=== PATIENT | female | born 1970 | race Caucasian/White ===

== ENCOUNTER → 2019-04-12 16:06 | Outpatient (CLI) | payer MEDICARE, SELFPAY ==
[2019-04-12 17:42] LABS: Basophils # 0.1 K/mm3 (0-0.2); Basophils % 1.1 % (0.1-2.0); Eosinophils # 0.2 K/mm3 (0.0-0.4); Eosinophils % 2.2 % (0.1-12.0); Hematocrit 45.1 % (37.0-47.0); Hemoglobin 14.4 g/dL (12.2-16.2); Lymphocytes # 3.7 K/mm3 (0.7-4.5); Lymphocytes % 38.2 % (10-50); Mean Corpuscular HGB Conc 31.9 g/dL (31.8-35.4); Mean Corpuscular Hemoglobin 29.1 pg (27.0-31.2); Mean Platelet Volume 8.2 fl (7.4-10.4); Monocytes # 0.4 K/mm3 (0.1-1.0); Monocytes % 4.3 % (1.7-9.3); Neutrophils # 5.3 K/mm3 (1.8-7.8); Neutrophils % 54.1 % (37.0-80.0); Platelet Count 337 K/mm3 (142-424); Red Blood Count 4.96 M/mm3 (4.20-5.40); Red Cell Distribution Width 13.9 % (11.5-17.5); White Blood Count 9.8 K/mm3 (4.8-10.8)
[2019-04-12 18:35] LABS: Alanine Aminotransferase 35 U/L (12-78); Albumin Level 3.5 gm/dL (3.4-5.0); Alkaline Phosphatase 117 U/L (46-116); Anion Gap 13.3 mEq/L (5-15); Aspartate Amino Transferase 20 U/L (15-37); Bilirubin,Total 0.4 mg/dL (0.2-1.0); Blood Urea Nitrogen 11 mg/dL (7-18); Calcium 9.4 mg/dL (8.5-10.1); Carbon Dioxide 28 mmol/L (21.0-32.0); Chloride 100 mmol/L (98-107); Chol/HDL Ratio 9.7 (1-3.5); Cholesterol 233 mg/dL (140-200); Creatinine,Serum 0.58 mg/dL (0.55-1.02); Estimated Glomerular Filt Rate 110 ml/min (>60); GFR (African American) 134 ML/MIN (>60); Globulin 3.4 gm/dl (1.3-3.2); Glucose 193 mg/dL (74-106); HDL Cholesterol 24 mg/dL (29-89); Potassium 4.3 mmoL/L (3.5-5.1); Sodium 137 mmol/L (136-145); Thyroid Stimulating Hormone 1.36 uIU/ml (0.358-3.740); Total Protein,Serum 6.9 gm/dL (6.4-8.2)
[2019-04-12 18:52] LABS: C-Reactive Protein < 0.2 mg/dL (0.0-0.9); Triglycerides 877 mg/dL (30-200)
[2019-04-12 18:56] LABS: Hemoglobin A1C 9.5 % (0.0-7.0)
[2019-04-12 18:58] LABS: Erythrocyte Sedimentation Rate 16 mm/hr (0-20)
[2019-04-14 18:15] LABS: Complement C3 137 mg/dL (82-167); Vitamin B12 308 pg/mL (232-1245); Vitamin D 25 Hydroxy 32.6 ng/mL (30.0-100.0)
[2019-04-27 17:59] LABS: Antinuclear Antibodies (ANA) Negative
== END ==
PROVIDERS: PCP Nurse Practitioner Family; Visit Provider Nurse Practitioner Family
DX: E11.9 Type 2 diabetes mellitus without complications (principal); M32.9 Systemic lupus erythematosus, unspecified; I10 Essential (primary) hypertension; G89.29 Other chronic pain
CPT/HCPCS: 36415; 80053; 80061; 82607; 82652; 83036; 84443; 85025; 85651; 86038; 86140; 86161

== ENCOUNTER → 2019-10-31 13:50 | Outpatient (POV) | payer MEDICARE, SELFPAY | DX: Z00.00 Encounter for general adult medical examination without abnormal findings (principal) ==

== ENCOUNTER → 2019-11-07 12:51 | Outpatient (CLI) | payer MEDICARE, SELFPAY ==
--- NOTE | 2019-11-07 13:01 | CT_ITS ---
PROCEDURE: CT HEAD/BRAIN WO CON CLINICAL INDICATION: Shunt review, chronic daily headache COMPARISON: No exams were available for comparison TECHNIQUE: Axial images obtained. All CT scans at the facility use one or more dose reduction, viz: automated exposure control, ma/kV adjustment per patient size (including targeted exams where dose is matched to indication, i.e. head), or iterative reconstruction technique. FINDINGS: No midline shift, mass effect, intracranial hemorrhage, hydrocephalus, or extra-axial fluid collection is evident. There is a ACCOUNT RECEIVABLE ASSOCIATE shunt present from the left frontal approach. The shunt traverses the body of the left lateral ventricle crossing midline lying along the medial aspect of the right thalamus. No hydrocephalus. The left lateral ventricle is smaller than the right side the calvarium has an unremarkable appearance. No mastoid effusion. There is moderate mucosal thickening of the right maxillary sinus and right ethmoid sinuses. IMPRESSION: 1. No acute intracranial findings. 2. Left-sided ACCOUNT RECEIVABLE ASSOCIATE shunt present as described above. No hydrocephalus apparent. 3. Sinus disease Dictated by: Deny Hart MD 11/07/2019 15:58 Electronically signed by Deny Hart MD in [facility] 11/07/2019 15:58
--- NOTE | 2019-11-07 13:30 | CA_ITS ---
APPROVED REPORT EXAM: Comprehensive 2D, Doppler, and color-flow Echocardiogram Psychiatry Physician: Michelle Carnes RVT Ht: 5 ft 1 in Wt: 225lbs BSA: 1.99 BP: 122/71 mmHg Indications: palps,copd,eris,tia,lupus,ele's.gerd,dm,htn,hld,obesity TDS 2D Dimensions LVOT 2.00 cm (M/F) 1.5-2.5 M-Mode Dimensions RVDd 2.77 cm (0.9-2.6) LVDd 5.95 cm (3.5-5.7) LVDs 3.79 cm (3.5-5.7) IVSd 0.53 cm (0.6-1.1) PWd 0.61 cm (0.6-1.1) EF (Teich) 65.10% FS 36.30% EDV (Teich) 176.60 mL ESV (Teich) 61.60 mL LV Diastology E/A Ratio 0.80 Mitral Valve MV A Velocity 66.00 (40-130 cm/s) Left Ventricle Left atrium is mildly enlarged, left ventricle is normal size, mild concentric left ventricular hypertrophy, visually estimated ejection fraction 55% with no regional wall motion abnormality, grade 1 diastolic dysfunction seen without tissue Doppler evidence of raise left atrial pressure. Right Ventricle Right atrium is normal size, right ventricle is mildly enlarged with normal contractility. Aortic Valve Aortic valve is minimally thickened and fibrosed. There is no aortic stenosis or aortic insufficiency. Mitral Valve Mitral valve is grossly normal, there is mild mitral regurgitation. Tricuspid Valve Tricuspid valve is grossly normal, there is mild tricuspid regurgitation, tricuspid regurgitation jet velocity is inadequate for calculation of the right ventricular systolic pressure. Pulmonic Valve Pulmonic valve is poorly visualized. Great Vessels Aortic root is normal size. Pericardium No significant pericardial effusion noted. Conclusion 1. Left atrium, normal left ventricular size, mild concentric left ventricular hypertrophy, visually estimated ejection fraction 55% with no regional wall motion abnormality, grade 1 diastolic dysfunction seen without tissue Doppler evidence of raise left atrial pressure. 2. Mildly enlarged right ventricle with normal contractility. 3. Mild mitral and tricuspid regurgitation. 4. No significant pericardial effusion noted. Electronically signed by : Daniel Ordoñez, 11/08/2019 12:01:03
== END ==
PROVIDERS: PCP Nurse Practitioner Family; Visit Provider Specialist
DX: G04.90 Encephalitis and encephalomyelitis, unspecified (principal); M32.9 Systemic lupus erythematosus, unspecified; R51 Headache; Z86.69 Personal history of other diseases of the nervous system and sense organs; Z98.2 Presence of cerebrospinal fluid drainage device; R00.2 Palpitations; R07.89 Other chest pain; R06.09 Other forms of dyspnea
CPT/HCPCS: 36415; 70450; 80053; 85025; 85651; 85660; 86225; 86235; 93306

== ENCOUNTER → 2019-11-07 14:00 | Outpatient (CLI) | payer MEDICARE, SELFPAY ==
[2019-11-07 15:26] LABS: Basophils # 0.1 K/mm3 (0-0.2); Basophils % 0.8 % (0.1-2.0); Eosinophils # 0.2 K/mm3 (0.0-0.4); Eosinophils % 1.6 % (0.1-12.0); Hematocrit 44.9 % (37.0-47.0); Hemoglobin 14.9 g/dL (12.2-16.2); Lymphocytes # 3.1 K/mm3 (0.7-4.5); Lymphocytes % 29.2 % (10-50); Mean Corpuscular HGB Conc 33.1 g/dL (31.8-35.4); Mean Corpuscular Hemoglobin 29.8 pg (27.0-31.2); Mean Platelet Volume 7.4 fl (7.4-10.4); Monocytes # 0.6 K/mm3 (0.1-1.0); Monocytes % 5.4 % (1.7-9.3); Neutrophils # 6.6 K/mm3 (1.8-7.8); Neutrophils % 62.9 % (37.0-80.0); Platelet Count 298 K/mm3 (142-424); Red Blood Count 4.99 M/mm3 (4.20-5.40); Red Cell Distribution Width 13.9 % (11.5-17.5); White Blood Count 10.6 K/mm3 (4.8-10.8)
[2019-11-07 16:09] LABS: Chloride 100 mmol/L (98-107)
[2019-11-07 16:10] LABS: Potassium 4.3 mmoL/L (3.5-5.1); Sodium 133 mmol/L (136-145)
[2019-11-07 16:12] LABS: Alanine Aminotransferase 77 U/L (12-78); Alkaline Phosphatase 138 U/L (38-126); Aspartate Amino Transferase 45 U/L (14-36); Bilirubin,Total 0.6 mg/dl (0.2-1.3); Blood Urea Nitrogen 10 mg/dl (7-17); Estimated Glomerular Filt Rate 131 ml/min (>60); GFR (African American) 158 ML/MIN (>60)
[2019-11-07 16:13] LABS: Albumin Level 3.6 g/dl (3.5-5.0); Albumin/Globulin Ratio 1.2 (1.1-1.8); Anion Gap 9.3 mEq/L (5-15); Calcium 8.9 mg/dl (8.4-10.2); Carbon Dioxide 28 mmol/L (22.0-30.0); Globulin 2.9 g/dL (1.3-3.2); Glucose 296 mg/dl (74-100); Total Protein,Serum 6.5 g/dl (6.3-8.2)
[2019-11-07 20:21] LABS: Erythrocyte Sedimentation Rate 23 mm/hr (0-20)
[2019-11-09 12:18] LABS: Anti-Centromere B Antibodies <0.2 AI (0.0-0.9); Anti-Jo-1 <0.2 AI (0.0-0.9); Anti-Smith Antibody <0.2 AI (0.0-0.9); Antichromatin Antibodies <0.2 AI (0.0-0.9); Antiscleroderma-70 Antibodies <0.2 AI (0.0-0.9); RNP Antibodies 0.2 AI (0.0-0.9); Sjogren's Anti-SS-A <0.2 AI (0.0-0.9); Sjogren's Anti-SS-B <0.2 AI (0.0-0.9)
[2019-11-09 15:41] LABS: Anti-DNA (DS) Ab Qn <1 IU/mL (0-9); Hemoglobin (Hgb) Solubility Negative (Negative)
== END ==
PROVIDERS: Visit Provider Specialist
DX: E11.69 Type 2 diabetes mellitus with other specified complication (principal); G04.90 Encephalitis and encephalomyelitis, unspecified; G47.33 Obstructive sleep apnea (adult) (pediatric); M32.9 Systemic lupus erythematosus, unspecified; R51 Headache; Z86.69 Personal history of other diseases of the nervous system and sense organs; Z98.2 Presence of cerebrospinal fluid drainage device
CPT/HCPCS: 36415; 80053; 85025; 85651; 85660; 86225; 86235

== ENCOUNTER → 2019-12-11 11:26 | Outpatient (CLI) | payer MEDICARE, SELFPAY ==
--- NOTE | 2019-12-11 11:32 | XR_ITS ---
PROCEDURE: XR FOOT LT MIN 3V CLINICAL INDICATION: COMPARISON: No exams were available for comparison FINDINGS: No fracture or dislocation. No lytic or blastic change. There is normal mineralization. The joint spaces are well-preserved. No significant degenerative/arthritic changes. No erosive changes evident. Other findings:None. IMPRESSION: No acute findings. Dictated by: Deny Hart MD 12/11/2019 14:19 Electronically signed by Deny Hart MD in [facility] 12/11/2019 14:19
--- NOTE | 2019-12-11 11:34 | XR_ITS ---
PROCEDURE: XR ANKLE LT MIN 3V CLINICAL INDICATION: L FOOT AND ANKLE PAIN COMPARISON: No exams were available for comparison FINDINGS: There is a nondisplaced transverse fracture involving the tip lateral malleolus with mild overlying soft tissue swelling. The joint spaces are well-preserved. No significant degenerative/arthritic changes. No erosive changes evident. Other findings:Small calcaneal spur and Achilles enthesophyte IMPRESSION: A nondisplaced fracture tip of the lateral malleolus Dictated by: Deny Hart MD 12/11/2019 14:05 Electronically signed by Deny Hart MD in [facility] 12/11/2019 14:05
== END ==
PROVIDERS: PCP Internal Medicine Adolescent Medicine; Visit Provider Nurse Practitioner Family
DX: M79.672 Pain in left foot (principal); M25.572 Pain in left ankle and joints of left foot
CPT/HCPCS: 73610; 73630

== ENCOUNTER 2019-12-13 14:08 | Outpatient (RCR) | payer MEDICARE, SELFPAY | END 2019-12-13 14:20 | disposition home or self-care (01) | LOC: PT 14:08 | PROVIDERS: Visit Provider Internal Medicine Adolescent Medicine | DX: S82.65XA Nondisplaced fracture of lateral malleolus of left fibula, initial encounter for closed fracture (principal) | CPT/HCPCS: 97760 ==

== ENCOUNTER → 2019-12-25 10:33 | Outpatient (CLI) | payer MEDICARE, SELFPAY ==
--- NOTE | 2019-12-25 10:37 | XR_ITS ---
PROCEDURE: XR ANKLE LT MIN 3V CLINICAL INDICATION: LEFT ANKLE FRACTURE FU Follow-up fracture COMPARISON: XR ANKLE LT MIN 3V from 12/11/2019 FINDINGS: There is a nondisplaced transverse fracture at the tip the lateral malleolus. Fracture line appears somewhat less apparent and may be due to early healing. There is a small calcaneal spur and Achilles enthesophyte Other findings:None. IMPRESSION: Healing nondisplaced avulsion fracture at the tip of the lateral malleolus Dictated by: Deny Hart MD 12/25/2019 13:05 Electronically signed by Deny Hart MD in [facility] 12/25/2019 13:05
== END ==
PROVIDERS: PCP Nurse Practitioner Family; Visit Provider Orthopaedic Surgery
DX: S82.892A Other fracture of left lower leg, initial encounter for closed fracture (principal)
CPT/HCPCS: 73610

== ENCOUNTER → 2020-05-12 10:12 | Outpatient (CLI) | payer MEDICARE, SELFPAY ==
[2020-05-12 11:02] LABS: Basophils # 0.1 K/mm3 (0-0.2); Basophils % 0.8 % (0.1-2.0); Eosinophils # 0.2 K/mm3 (0.0-0.4); Eosinophils % 1.8 % (0.1-12.0); Hematocrit 47.4 % (37.0-47.0); Hemoglobin 15.9 g/dL (12.2-16.2); Lymphocytes # 3.2 K/mm3 (0.7-4.5); Mean Corpuscular HGB Conc 33.7 g/dL (31.8-35.4); Mean Corpuscular Hemoglobin 29.3 pg (27.0-31.2); Mean Corpuscular Volume 87.2 fl (81-99); Monocytes # 0.5 K/mm3 (0.1-1.0); Monocytes % 4.8 % (1.7-9.3); Neutrophils # 7.3 K/mm3 (1.8-7.8); Neutrophils % 64.6 % (37.0-80.0); Platelet Count 332 K/mm3 (142-424); Red Blood Count 5.43 M/mm3 (4.20-5.40); Red Cell Distribution Width 13.9 % (11.5-17.5); White Blood Count 11.3 K/mm3 (4.8-10.8)
[2020-05-12 11:46] LABS: Hemoglobin A1C 11.2 % (4.0-6.0)
[2020-05-12 12:14] LABS: Chloride 100 mmol/L (98-107); Sodium 135 mmol/L (136-145)
[2020-05-12 12:17] LABS: Alanine Aminotransferase 28 U/L (12-78); Albumin/Globulin Ratio 1.4 (1.1-1.8); Alkaline Phosphatase 155 U/L (38-126); Aspartate Amino Transferase 22 U/L (14-36); Bilirubin,Total 0.4 mg/dl (0.2-1.3); Blood Urea Nitrogen 16 mg/dl (7-17); Carbon Dioxide 27 mmol/L (22.0-30.0); Cholesterol 182 mg/dl (140-200); Estimated Glomerular Filt Rate 131 ml/min (>60); GFR (African American) 158 ML/MIN (>60); Globulin 2.8 g/dL (1.3-3.2); Total Protein,Serum 6.8 g/dl (6.3-8.2)
[2020-05-12 12:18] LABS: Calcium 9.6 mg/dl (8.4-10.2); Chol/HDL Ratio 6.7 (1-3.5); Glucose 368 mg/dl (74-100); HDL Cholesterol 27 mg/dl (40-60)
[2020-05-12 12:23] LABS: C-Reactive Protein 3.6 mg/L (0-4)
[2020-05-12 12:28] LABS: Direct LDL Cholesterol 48.53 mg/dL (100-129)
[2020-05-12 12:30] LABS: Triglycerides 863 mg/dl (30-150)
[2020-05-12 12:36] LABS: Erythrocyte Sedimentation Rate 7 mm/hr (0-20)
[2020-05-12 12:48] LABS: Thyroid Stimulating Hormone 1.35 uIU/mL (0.465-4.68)
== END ==
PROVIDERS: PCP Nurse Practitioner Family; Visit Provider Nurse Practitioner Family
DX: M32.9 Systemic lupus erythematosus, unspecified (principal); I10 Essential (primary) hypertension; E11.9 Type 2 diabetes mellitus without complications; R63.4 Abnormal weight loss
CPT/HCPCS: 36415; 80053; 80061; 83036; 84443; 85025; 85651; 86140

== ENCOUNTER → 2020-12-04 11:51 | Outpatient (CLI) | payer MEDICARE, SELFPAY ==
[2020-12-04 12:23] LABS: Basophils # 0.1 K/mm3 (0-0.2); Eosinophils # 0.2 K/mm3 (0.0-0.4); Hematocrit 45.2 % (37.0-47.0); Hemoglobin 15.3 g/dL (12.2-16.2); Lymphocytes # 3.3 K/mm3 (0.7-4.5); Lymphocytes % 28.1 % (10-50); Mean Corpuscular HGB Conc 33.7 g/dL (31.8-35.4); Mean Corpuscular Hemoglobin 29.6 pg (27.0-31.2); Mean Corpuscular Volume 87.7 fl (81-99); Mean Platelet Volume 7.3 fl (7.4-10.4); Monocytes # 0.6 K/mm3 (0.1-1.0); Monocytes % 4.9 % (1.7-9.3); Neutrophils # 7.4 K/mm3 (1.8-7.8); Platelet Count 327 K/mm3 (142-424); Red Blood Count 5.16 M/mm3 (4.20-5.40); Red Cell Distribution Width 13.9 % (11.5-17.5); White Blood Count 11.6 K/mm3 (4.8-10.8)
[2020-12-04 13:10] LABS: Hemoglobin A1C 12.5 % (4.0-6.0)
[2020-12-04 13:19] LABS: Erythrocyte Sedimentation Rate 11 mm/hr (0-30)
[2020-12-04 13:41] LABS: Chloride 103 mmol/L (98-107); Potassium 5.3 mmoL/L (3.5-5.1); Sodium 135 mmol/L (136-145)
[2020-12-04 13:43] LABS: Blood Urea Nitrogen 14 mg/dl (7-17); Estimated Glomerular Filt Rate 168 ml/min (>60); GFR (African American) 204 ML/MIN (>60)
[2020-12-04 13:44] LABS: Alanine Aminotransferase 58 U/L (12-78); Albumin/Globulin Ratio 1.3 (1.1-1.8); Alkaline Phosphatase 161 U/L (38-126); Anion Gap 16.3 mEq/L (5-15); Aspartate Amino Transferase 37 U/L (14-36); Bilirubin,Total 0.6 mg/dl (0.2-1.3); Calcium 9.1 mg/dl (8.4-10.2); Carbon Dioxide 21 mmol/L (22.0-30.0); Chol/HDL Ratio 11.8 (1-3.5); Cholesterol 235 mg/dl (140-200); Globulin 3.1 g/dL (1.3-3.2); Glucose 357 mg/dl (74-100); HDL Cholesterol 20 mg/dl (40-60); Total Protein,Serum 7.1 g/dl (6.3-8.2)
[2020-12-04 13:52] LABS: Triglycerides > 1575 mg/dl (30-150)
[2020-12-04 14:05] LABS: Direct LDL Cholesterol < 30.00 mg/dL (100-129)
[2020-12-04 15:55] LABS: Creatine Kinase 25 U/L (30-135)
[2020-12-04 17:02] LABS: Vitamin B12 374 pg/mL (239-931)
[2020-12-05 14:24] LABS: Aldolase 7.7 U/L (3.3-10.3)
== END ==
PROVIDERS: Visit Provider Specialist
DX: R53.1 Weakness (principal); M32.19 Other organ or system involvement in systemic lupus erythematosus; E11.9 Type 2 diabetes mellitus without complications; Z79.84 Long term (current) use of oral hypoglycemic drugs
CPT/HCPCS: 36415; 80053; 80061; 82085; 82550; 82607; 82746; 83036; 85025; 85651

== ENCOUNTER → 2021-01-12 14:40 | Outpatient (CLI) | payer MEDICARE, SELFPAY ==
--- NOTE | 2021-01-12 14:47 | XR_ITS ---
PROCEDURE: XR ANKLE LT MIN 3V CLINICAL INDICATION: LT ANKLE PAIN DUE TO TRAUMA COMPARISON: CR XR ANKLE LT MIN 3V from 12/11/2019 CR XR ANKLE LT MIN 3V from 12/25/2019 CR XR TIBIA FIBULA RT 2V from 01/12/2021 FINDINGS: There is a curvilinear lucency along the lateral aspect of the distal tibia which extends to the distal surface suspicious for nondisplaced fracture. The fibula and talar dome has an unremarkable appearance. There is a mildly prominent calcaneal spur and a small Achilles enthesophyte The joint spaces are well-preserved. No significant degenerative/arthritic changes. No erosive changes evident. Other findings:None. IMPRESSION: Nondisplaced fracture involving the distal tibia laterally. Dictated by: Deny Hart MD 01/12/2021 15:42 Deny Hart MD in [facility] 01/12/2021 15:42
--- NOTE | 2021-01-12 14:47 | XR_ITS ---
PROCEDURE: XR TIBIA FIBULA RT 2V CLINICAL INDICATION: RT LEG PAIN,PAIN DUE TO TRAUMA COMPARISON: No exams were available for comparison FINDINGS: No fracture or dislocation. No lytic or blastic change. There is normal mineralization. The joint spaces are well-preserved. No significant degenerative/arthritic changes. No erosive changes evident. Other findings:Phleboliths are present in the pretibial region. There is a prominent calcaneal spur IMPRESSION: No acute findings. Dictated by: Deny Hart MD 01/12/2021 15:43 Deny Hart MD in [facility] 01/12/2021 15:43
== END ==
PROVIDERS: PCP Nurse Practitioner Family; Visit Provider Nurse Practitioner Family
DX: M79.661 Pain in right lower leg (principal); M25.572 Pain in left ankle and joints of left foot; G89.11 Acute pain due to trauma
CPT/HCPCS: 73590; 73610

== ENCOUNTER 2021-01-13 15:25 | Outpatient (RCR) | payer MEDICARE, SELFPAY | END 2021-01-13 16:47 | disposition home or self-care (01) | LOC: PT 15:25 | PROVIDERS: Visit Provider Orthopaedic Surgery | DX: S82.302A Unspecified fracture of lower end of left tibia, initial encounter for closed fracture (principal) ==

== ENCOUNTER → 2021-01-20 14:10 | Outpatient (CLI) | payer MEDICARE, SELFPAY ==
--- NOTE | 2021-01-20 14:14 | XR_ITS ---
PROCEDURE: XR ANKLE LT MIN 3V CLINICAL INDICATION: Distal fib fracture COMPARISON: CR XR ANKLE LT MIN 3V from 12/11/2019 CR XR ANKLE LT MIN 3V from 12/25/2019 CR XR ANKLE LT MIN 3V from 01/12/2021 FINDINGS: Nondisplaced curvilinear fracture involves the distal tibia medially unchanged. Ankle mortise is preserved. Tiny avulsion fracture involves the distal fibula which may be chronic IMPRESSION: No change distal tibial fracture. Dictated by: Deny Hart MD 01/20/2021 15:55 Deny Hart MD in [facility] 01/20/2021 15:55
--- NOTE | 2021-01-20 15:32 | XR_ITS ---
PROCEDURE: XR ANKLE RT MIN 3V CLINICAL INDICATION: right ankle pain COMPARISON: CR XR ANKLE LT MIN 3V from 12/11/2019 CR XR ANKLE LT MIN 3V from 12/25/2019 CR XR ANKLE LT MIN 3V from 01/12/2021 CR XR ANKLE LT MIN 3V from 01/20/2021 FINDINGS: No fracture or dislocation. No lytic or blastic change. There is normal mineralization. The joint spaces are well-preserved. No significant degenerative/arthritic changes. No erosive changes evident. Small phleboliths are present along the anterior distal to mid tibia IMPRESSION: No acute findings. Dictated by: Deny Hart MD 01/20/2021 15:56 Deny Hart MD in [facility] 01/20/2021 15:56
== END ==
PROVIDERS: PCP Nurse Practitioner Family; Visit Provider Orthopaedic Surgery
DX: M25.571 Pain in right ankle and joints of right foot; S82.892A Other fracture of left lower leg, initial encounter for closed fracture
CPT/HCPCS: 73610

== ENCOUNTER → 2021-01-26 11:22 | Outpatient (POV) | payer MEDICARE, SELFPAY ==
[2021-01-26 11:44] VITALS: BP 122/78; PULSE 70; RESP 18; O2SAT 95; BMI 40.6
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
== END ==
PROVIDERS: PCP Nurse Practitioner Family; Visit Provider Clinical Nurse Specialist Family Health
DX: M54.2 Cervicalgia (principal); M54.16 Radiculopathy, lumbar region; M54.5 Low back pain; M79.7 Fibromyalgia
CPT/HCPCS: 99202; G0463

== ENCOUNTER → 2021-02-11 07:06 | Outpatient (CLI) | payer MEDICARE, SELFPAY ==
--- NOTE | 2021-02-11 07:10 | CT_ITS ---
PROCEDURE: CT LUMBAR SPINE WO CON CLINICAL HISTORY: BACK/NECK PAIN Low back pain, chronic COMPARISON: No exams were available for comparison TECHNIQUE: Axial images obtained with sagittal and coronal reformats. All CT scans at the facility use one or more dose reduction, viz: automated exposure control, ma/kV adjustment per patient size (including targeted exams where dose is matched to indication, i.e. head), or iterative reconstruction technique. FINDINGS: There is normal alignment. No acute fracture or dislocation is evident. There is an intradural catheter present. The catheter enters the thecal sac at the L3-L4 level ascends superiorly with the tip at the T12 level. T10-T11: Degenerative disc disease with anterior and lateral osteophytes. T11-T12: Degenerative disc disease. There is a small left paracentral and foraminal disc protrusion causing left lateral recess and foraminal narrowing. T12-L1: Mild degenerative disc disease. L1-L2: Unremarkable. L2-L3: Unremarkable. L3-L4: Unremarkable. L4-5: Facet hypertrophic change. There is a small to medium-sized central disc protrusion with bilateral lateral recess narrowing. L5-S1: Bilateral pars defects with bony hypertrophy at the defects with mild bilateral lateral recess narrowing. Bulging disc with facet and ligamentum hypertrophy with mild bilateral foraminal narrowing. No spondylolisthesis. Minimal calcification in what is felt to represent the left ovary. This is incompletely imaged. IMPRESSION: 1. T11-T12: Degenerative disc disease. There is a small left paracentral and foraminal disc protrusion causing left lateral recess and foraminal narrowing 2. L4-5: Facet hypertrophic change. There is a small to medium-sized central disc protrusion with bilateral lateral recess narrowing. 3. L5-S1: Bilateral pars defects with bony hypertrophy at the defects with mild bilateral lateral recess narrowing. Bulging disc with facet and ligamentum hypertrophy with mild bilateral foraminal narrowing. No spondylolisthesis Dictated by: Deny Hart MD 02/11/2021 07:49 Deny Hart MD in [place] 02/11/2021 07:49
--- NOTE | 2021-02-11 07:10 | CT_ITS ---
PROCEDURE: CT CERVICAL SPINE WO CON CLINICAL INDICATION: BACK/NECK PAIN COMPARISON: No exams were available for comparison TECHNIQUE: Axial images obtained with sagittal and coronal reformats. All CT scans at the facility use one or more dose reduction, viz: automated exposure control, ma/kV adjustment per patient size (including targeted exams where dose is matched to indication, i.e. head), or iterative reconstruction technique. Axial spiral CT scanning performed of the cervical spine beginning at the base of the skull and continuing to the upper T-spine. 3-D multiplanar reconstruction with 3-D manipulation of volumetric data set in image rendering was completed by the radiologist and/or technologist with the supervision of the radiologist on independent workstation. FINDINGS: There is minimal cervical curvature convex right. There is normal alignment. No acute fracture or dislocation. No lytic or blastic change. C1-C2: Unremarkable. C2-C3: Mild right foraminal narrowing from uncovertebral hypertrophy. C3-C4: Unremarkable. C4-C5: Unremarkable. C5-C6: Degenerative disc disease with posterior endplate hypertrophic changes and uncovertebral hypertrophy greater on the left. There is canal stenosis and bilateral lateral recess narrowing as well as severe left-sided foraminal narrowing. The canal measures 8 and 9 mm in AP dimension. C6-C7: Unremarkable. C7-T1 and T1-T2 have an unremarkable appearance. T2-T3: Small left paracentral disc osteophyte complex A SENIOR COST ESTIMATOR shunt traverses the right neck. There are scattered small lymph nodes in the neck and mild prominence of the adenoid tissue. IMPRESSION: 1. C2-C3: Mild right foraminal narrowing from uncovertebral hypertrophy. 2. C5-C6: Degenerative disc disease with posterior endplate hypertrophic changes and uncovertebral hypertrophy greater on the left. There is canal stenosis and bilateral lateral recess narrowing as well as severe left-sided foraminal narrowing. The canal measures 8 and 9 mm in AP dimension. 3. C7-T1 and T1-T2 have an unremarkable appearance. 4. T2-T3: Small left paracentral disc osteophyte complex Dictated by: Deny Hart MD 02/11/2021 08:01 Deny Hart MD in [place] 02/11/2021 08:01
== END ==
PROVIDERS: PCP Nurse Practitioner Family; Visit Provider Clinical Nurse Specialist Family Health
DX: M54.2 Cervicalgia (principal); M54.5 Low back pain
CPT/HCPCS: 72125; 72131

== ENCOUNTER → 2021-02-24 11:21 | Outpatient (CLI) | payer MEDICARE, SELFPAY ==
--- NOTE | 2021-02-24 11:27 | XR_ITS ---
PROCEDURE: XR ANKLE LT MIN 3V CLINICAL INDICATION: left alvusion fx COMPARISON: CR XR ANKLE LT MIN 3V from 12/25/2019 CR XR ANKLE LT MIN 3V from 01/12/2021 CR XR ANKLE RT MIN 3V from 01/20/2021 CR XR ANKLE LT MIN 3V from 01/20/2021 FINDINGS: Nondisplaced longitudinal fracture once again noted involving the lateral aspect of the distal tibia. Tiny avulsion fracture of the distal fibula once again noted unchanged. Calcaneal spur once again noted. Other findings:None. IMPRESSION: No change distal tibial fracture and tiny avulsion fracture of the distal fibula Dictated by: Deny Hart MD 02/24/2021 14:34 Deny Hart MD in [place] 02/24/2021 14:34
== END ==
PROVIDERS: PCP Nurse Practitioner Family; Visit Provider Orthopaedic Surgery
DX: S82.62XA Displaced fracture of lateral malleolus of left fibula, initial encounter for closed fracture (principal)
CPT/HCPCS: 73610

== ENCOUNTER → 2021-02-26 10:04 | Outpatient (POV) | payer MEDICARE, SELFPAY ==
[2021-02-26 10:13] VITALS: BP 132/74; PULSE 77; RESP 18; O2SAT 95; BMI 89.5
--- NOTE | 2021-02-26 12:28 | HMH.PAINSOAP ---
[facility] Pain Management SOAP Note Subjective:: Patient is a pleasant 50-year-old white female who presents today for follow-up. She recently underwent CT scan of the cervical and lumbar spine. She was referred to us by Kathy Godoy for worsening neck and low back pain. She reports her neck pain to be worse at this time. She also has a crush injury to her right ankle from approximately 1 month ago. Patient says that she has had chronic neck and low back pain for many years. She is managed at this time for fibromyalgia with [place], Cymbalta, and Lyrica. Patient says that the pain in her neck is radiating into her bilateral upper extremities causing numbness and tingling in her hands. She also has low back pain with radiation into her bilateral lower extremities worse to the right ankle due to the recent crush injury in January 2021. She does use ice and heat therapies, but does not seem to get much relief. She also reports to have been taking meloxicam most recently. Meloxicam has not given her relief. She would like to review her CT scans today and discuss a further plan of care. Review of Systems General: No recent weight changes, no fever, no sleep disturbances Respiratory: No cough, no shortness of air, no recurring pulmonary infections Cardiovascular/peripheral vascular: No chest pain, no palpitations, no edema, no shortness of breath Gastrointestinal: No new onset incontinence, normal bowel movements reported Genitourinary: No new onset incontinence Musculoskeletal: Neck pain with radiation into bilateral upper extremities, low back pain with radiation into bilateral lower extremities Psychiatric: [Normal mood/affect] Neurological: [Denies weakness in extremities], [denies balance issues] Objective:: Physical exam General: Alert and oriented x3, no acute distress, pleasant and cooperative, Lungs: Respirations even and unlabored, symmetrical chest expansion Eyes: PERRL Musculoskeletal: Flexion and extension of cervical and lumbar [spine] somewhat guarded secondary to pain, strength in upper and lower extremities [5/5], [antalgic gait noted] Neurological: Speech clear, [nylon hot wire cutter equal], no gross sensory deficit Assessment:: Degenerative disc disease cervical and lumbar spine, with spinal stenosis cervical and lumbar spine Plan:: Patient is requesting a neurosurgery evaluation. She has been advised that she will likely need to undergo injective therapy before proceeding with neurosurgical evaluation. She would like to proceed with a cervical epidural steroid injection. According to the CT scan, Degenerative disc disease with posterior endplate hypertrophic changes and uncovertebral hypertrophy greater on the left. There is canal stenosis and bilateral lateral recess narrowing as well as severe left-sided foraminal narrowing. The canal measures 8 and 9 mm in AP dimension. The patient is having pain in her neck with radiation into bilateral upper extremities. She is having numbness and tingling in her arms as well. We will schedule the patient for cervical epidural steroid injection at C5-C6 area. The patient is not currently on anticoagulation therapy. She has been seen by Dr. Saez for crush injury to her right foot. She does report to have a history of CELLULAR BIOLOGIST shunt. We will follow-up with patient after her injection for reevaluation of symptoms. She will continue with ice and heat therapies and meloxicam. Possible side effects of corticosteroids have been discussed with the patient. Risks and benefits of the procedure have been explained to the patient. Patient would like to proceed with the procedure. Patient has been instructed to contact the clinic with any concerns before the next appointment. Dr. Frank has reviewed this note and agrees with this plan of care. This note was dictated using voice recognition software and make contain errors or omissions. Patient has been instructed to contact the clinic with any co
== END ==
PROVIDERS: PCP Internal Medicine Adolescent Medicine; Visit Provider Clinical Nurse Specialist Family Health
DX: M50.10 Cervical disc disorder with radiculopathy, unspecified cervical region (principal); M51.36 Other intervertebral disc degeneration, lumbar region; M48.061 Spinal stenosis, lumbar region without neurogenic claudication; M48.02 Spinal stenosis, cervical region
CPT/HCPCS: 99212; G0463

== ENCOUNTER → 2021-03-03 14:03 | Outpatient (CLI) | payer MEDICARE, SELFPAY ==
--- NOTE | 2021-03-03 14:08 | US_ITS ---
PROCEDURE: US EXTREMITY RT LIMITED CLINICAL INDICATION: HEMATOMA/RULE OUT ABSCESS COMPARISON: No exams were available for comparison FINDINGS: No hematoma or abscess apparent in the clinical concern. There is mild interstitial edema in the subcutaneous tissue. No local fluid collection evident. IMPRESSION: No hematoma or abscess apparent. Interstitial edema within the adipose tissue. Dictated by: Deny Hart MD 03/03/2021 16:07 Deny Hart MD in [place] 03/03/2021 16:07
== END ==
PROVIDERS: PCP Internal Medicine Adolescent Medicine; Visit Provider Orthopaedic Surgery
DX: M79.661 Pain in right lower leg (principal)
CPT/HCPCS: 76882

== ENCOUNTER 2021-03-20 08:57 | Day surgery (SDC) | payer MEDICARE, SELFPAY ==
[2021-03-20 09:04] VITALS: BP 137/73; PULSE 72; RESP 18; TEMP 36.8; BMI 40.6
[2021-03-20 09:14] VITALS: BP 123/74; PULSE 73; RESP 18; O2SAT 96
[2021-03-20 09:22] VITALS: BP 122/76; PULSE 73; RESP 18; O2SAT 96
[2021-03-20 09:33] VITALS: BP 136/85; PULSE 74; RESP 20; O2SAT 97
--- NOTE | 2021-03-20 09:33 | P.PCN_ITS ---
- Procedure Date: 03/20/21 Time: 09:33 Anesthesiologist:: Monty Frank MD Complications:: None Pre-procedure Diagnosis:: Degenerative disc disease of the cervical spine with cervical radiculopathy symptoms Post-procedure Diagnosis:: Same Indications for Procedure:: Patient is a pleasant 50-year-old white female who we are treating for neck pain with cervical radiculopathy symptoms. She does have a UNHAIRING MACHINE OPERATOR shunt in place. She is having some increasing neck pain with radiation into both shoulders and both arms. She does have degenerative changes throughout the cervical spine. We will plan on cervical epidural steroid injection today to help with her pain symptoms. Procedure Details:: Cervical epidural steroid injection under fluoroscopy Informed consent was obtained and the risks and benefits of the procedure was explained to the patient. The patient was taken to the procedure room placed prone on the procedure table. The neck was prepped using ChloraPrep. The skin and subcutaneous tissues were anesthetized using lidocaine. I placed a 18-gauge epidural needle into the C5-C6 interspace and advanced using [id number] to air and fluoroscopic guidance. After confirmation of needle placement in the epidural space with dye, I injected 3 mL's lidocaine 1.5% and Depo-Medrol 80 mg. The patient tolerated the procedure well with no complications. Plan and Disposition:: We will follow-up with her in 2 weeks. Will reevaluate her symptoms at that time.
== END 2021-03-20 09:34 | disposition home or self-care (01) ==
LOC: SC.PAINP 08:58
PROVIDERS: PCP Internal Medicine Adolescent Medicine; Visit Provider Anesthesiology
DX: M50.10 Cervical disc disorder with radiculopathy, unspecified cervical region (principal); G43.909 Migraine, unspecified, not intractable, without status migrainosus; E78.5 Hyperlipidemia, unspecified; I10 Essential (primary) hypertension; J44.9 Chronic obstructive pulmonary disease, unspecified; J45.909 Unspecified asthma, uncomplicated; K21.9 Gastro-esophageal reflux disease without esophagitis; M19.90 Unspecified osteoarthritis, unspecified site; E11.9 Type 2 diabetes mellitus without complications; F32.9 Major depressive disorder, single episode, unspecified; Z72.0 Tobacco use
CPT/HCPCS: 62321; J1040; Q9966

== ENCOUNTER → 2021-04-07 08:39 | Outpatient (POV) | payer MEDICARE, SELFPAY ==
[2021-04-07 08:45] VITALS: BP 146/81; PULSE 80; RESP 18; O2SAT 99; BMI 42.5
--- NOTE | 2021-04-07 08:58 | HMH.PAINSOAP ---
[facility] Pain Management SOAP Note Subjective:: Patient is a 50-year-old white female who presents today for follow-up after a cervical epidural steroid injection at C5-C6 area. Patient reports she got no relief with the injections. Rates her pain a 10 out of 10. She is having pain in her neck and bilateral shoulders with achiness and heaviness. She says she also has weakness in her upper extremities. She and neck area. She has tried physical therapy in the past for greater than 6 weeks. She does have a TOOL CRIB LEAD shunt in place. She continues with home stretching and does take [place] prescribed by Dr. Saez. Review of Systems General: No recent weight changes, no fever, no sleep disturbances Respiratory: No cough, no shortness of air, no recurring pulmonary infections Cardiovascular/peripheral vascular: No chest pain, no palpitations, no edema, no shortness of breath Gastrointestinal: No new onset incontinence, normal bowel movements reported Genitourinary: No new onset incontinence Musculoskeletal: Neck pain with radiation into bilateral shoulders Psychiatric: [Normal mood/affect] Neurological: [Denies weakness in extremities], [denies balance issues] Objective:: Physical exam General: Alert and oriented x3, no acute distress, pleasant and cooperative Lungs: Respirations even and unlabored, symmetrical chest expansion Eyes: PERRL Musculoskeletal: Flexion and extension of cervical [spine] somewhat guarded secondary to pain, [normal gait noted Neurological: Speech clear, no gross sensory deficit Assessment:: Degenerative disc disease cervical spine cervical radiculopathy symptoms, myofascial pain cervical spine Plan:: Patient presents for follow-up after a cervical epidural steroid injection. She reports palpation to cervical paraspinal trapezius muscles. We will schedule the patient injective therapy to these areas to see if she gets relief. Patient is diabetic. We will follow-up with her after her injections for reevaluation of symptoms. Possible side effects of corticosteroids have been discussed with the patient. Risks and benefits of the procedure have been explained to the patient. Patient would like to proceed with the procedure. Patient has been instructed to contact the clinic with any concerns before the next appointment. Dr. Frank has reviewed this note and agrees with this plan of care. This note was dictated using voice recognition software and make contain errors or omissions. [facility] History I have reviewed the patient's past medical history: Yes Medical History: Reports:: Arrhythmia, Asthma, Chronic Obstructive Pulmonary Disease (COPD), Cerebrovascular Accident, Depression, Diabetes Mellitus Type 2, Gastroesophageal Reflux Disease(GERD), Hyperlipidemia, Hypertension, Migraine Denies:: Cancer, Diabetes Mellitus Type 1, MRSA, Seizures *Have you ever received a pneumonia vaccine?: Yes *Have you received a flu vaccine this season?: No Other Medical History: Reports: Arthritis, Other. Denies: Blood Transfusion Reaction Laterality Cases: Bilateral: Tonsillectomy Other Surgeries: Yes: Cholecystectomy, Colonoscopy, , EGD, Hysterectomy-Partial, Tubal Ligation Amputation: No Fractures: Yes (LT ANKLE) - *Social History Smoking Status: Current every day smoker Tobacco Type: cigarettes # Packs/Day (cigarettes): 1 Alcohol Intake: current Alcohol Intake Frequency:: holidays/special occasions only Substance Use Type: denies use *Occupational Status:: unemployed Housing: house Household Members: friend(s) *Travel in the last 8 weeks: None - Psychiatric History Pschychiatric History:: Reports:: Depression Family Hx:: Diabetes, Coronary Artery Disease, Hypertension
== END ==
PROVIDERS: Visit Provider Clinical Nurse Specialist Family Health
DX: M50.10 Cervical disc disorder with radiculopathy, unspecified cervical region (principal); M79.10 Myalgia, unspecified site
CPT/HCPCS: 99212; G0463

== ENCOUNTER → 2021-04-10 09:16 | Outpatient (CLI) | payer MEDICARE, SELFPAY | PROVIDERS: PCP Internal Medicine Adolescent Medicine; Visit Provider Specialist | DX: G93.40 Encephalopathy, unspecified (principal); E11.65 Type 2 diabetes mellitus with hyperglycemia; Z79.4 Long term (current) use of insulin | CPT/HCPCS: 36415; 80053; 80061; 82607; 82746; 83036; 84443; 85025; 95816; 95819 ==

== ENCOUNTER → 2021-04-10 10:41 | Outpatient (CLI) | payer MEDICARE, SELFPAY ==
[2021-04-10 11:19] LABS: Basophils # 0.1 K/mm3 (0-0.2); Basophils % 1.3 % (0.1-2.0); Eosinophils # 0.3 K/mm3 (0.0-0.4); Eosinophils % 2.2 % (0.1-12.0); Hematocrit 45.6 % (37.0-47.0); Hemoglobin 14.6 g/dL (12.2-16.2); Lymphocytes # 3.4 K/mm3 (0.7-4.5); Lymphocytes % 30.3 % (10-50); Mean Corpuscular Hemoglobin 29.7 pg (27.0-31.2); Mean Corpuscular Volume 92.6 fl (81-99); Mean Platelet Volume 8.1 fl (7.4-10.4); Monocytes # 0.4 K/mm3 (0.1-1.0); Monocytes % 3.8 % (1.7-9.3); Neutrophils % 62.5 % (37.0-80.0); Platelet Count 311 K/mm3 (142-424); Red Blood Count 4.92 M/mm3 (4.20-5.40); White Blood Count 11.2 K/mm3 (4.8-10.8)
[2021-04-10 11:25] LABS: Hemoglobin A1C 10.4 % (4.0-6.0)
[2021-04-10 12:08] LABS: Chol/HDL Ratio 5.2 (1-3.5); Cholesterol 162 mg/dl (140-200); HDL Cholesterol 31 mg/dl (40-60); Triglycerides 339 mg/dl (30-150); VLDL Cholesterol 68 mg/dL (0-40)
[2021-04-10 12:09] LABS: Alanine Aminotransferase 55 U/L (12-78); Albumin Level 3.8 g/dl (3.5-5.0); Albumin/Globulin Ratio 1.3 (1.1-1.8); Alkaline Phosphatase 133 U/L (38-126); Aspartate Amino Transferase 29 U/L (14-36); Bilirubin,Total 0.2 mg/dl (0.2-1.3); Blood Urea Nitrogen 11 mg/dl (7-17); Calcium 9.3 mg/dl (8.4-10.2); Carbon Dioxide 28 mmol/L (22.0-30.0); Chloride 104 mmol/L (98-107); Estimated Glomerular Filt Rate 168 ml/min (>60); GFR (African American) 204 ML/MIN (>60); Globulin 2.9 g/dL (1.3-3.2); Glucose 266 mg/dl (74-100); Sodium 140 mmol/L (136-145); Total Protein,Serum 6.7 g/dl (6.3-8.2)
[2021-04-10 12:19] LABS: Direct LDL Cholesterol 72.17 mg/dL (100-129)
[2021-04-10 12:39] LABS: Thyroid Stimulating Hormone 1.53 uIU/mL (0.465-4.68)
[2021-04-10 13:14] LABS: Vitamin B12 346 pg/mL (239-931)
[2021-04-10 13:21] LABS: Folate 8.21 ng/mL
== END ==
PROVIDERS: Nurse Practitioner Family; Visit Provider Specialist
DX: R41.3 Other amnesia (principal); E11.65 Type 2 diabetes mellitus with hyperglycemia
CPT/HCPCS: 36415; 80053; 80061; 82607; 82746; 83036; 84443; 85025

== ENCOUNTER 2021-04-24 10:08 | Day surgery (SDC) | payer MEDICARE, SELFPAY ==
[2021-04-24 10:18] VITALS: BP 130/74; PULSE 76; RESP 18; TEMP 36.3; O2SAT 97; BMI 42.5
[2021-04-24 10:53] VITALS: BP 133/84; PULSE 73; RESP 18; O2SAT 96
[2021-04-24 10:56] VITALS: PULSE 73; RESP 18; O2SAT 97
[2021-04-24 11:10] VITALS: BP 142/83; PULSE 70; RESP 20; O2SAT 97
--- NOTE | 2021-04-24 11:34 | P.PCN_ITS ---
- Procedure Date: 04/24/21 Time: 11:34 Anesthesiologist:: Dede Lyons MD Complications:: None Pre-procedure Diagnosis:: Myofascial pain in the neck and shoulder muscles Post-procedure Diagnosis:: Same Indications for Procedure:: This patient is a very pleasant 50-year-old white female who presents today with myofascial pain in her neck and shoulder muscles related to the above diagnosis. She has tried and failed conservative treatment including oral pain medications and home stretching program for greater than 6 weeks. She recently underwent a cervical epidural steroid injection at C5-C6 under fluoroscopy but unfortunately did not get any pain relief with this injection. Of note, she has a [employer] shunt in place. She also is currently prescribed [place] by Dr. Saez. The plan for today is for the patient to undergo trigger point injections to the bilateral splenius cervicis, cervical paraspinal, and upper trapezius muscles. Procedure Details:: Informed consent was obtained and the risk and benefits of the procedure was explained to the patient. Patient was taken to the procedure room. [Neck and upper trapezius area] were prepped using ChloraPrep. Trigger points were palpated and marked. Each of these trigger points were injected with bupivacaine 0.25% 2 mL and Depo-Medrol 40 mg. A total of[80] milligrams Depo- Medrol was used for bilateral trigger points of upper trapezius muscles and splenius cervicis, splenius cervicis muscles bilaterally]. Bandages were placed over the injection sites. Patient tolerated procedure well with no complications. Plan and Disposition:: Follow-up with this patient in 2 weeks. Will reevaluate pain symptoms at that time.
== END 2021-04-24 11:10 | disposition home or self-care (01) ==
LOC: SC.PAINP 10:10
PROVIDERS: PCP Nurse Practitioner Family; Visit Provider Anesthesiology Pain Medicine
DX: G43.909 Migraine, unspecified, not intractable, without status migrainosus; E78.5 Hyperlipidemia, unspecified; J44.9 Chronic obstructive pulmonary disease, unspecified; K21.9 Gastro-esophageal reflux disease without esophagitis; M79.18 Myalgia, other site; I10 Essential (primary) hypertension; M19.90 Unspecified osteoarthritis, unspecified site; E11.9 Type 2 diabetes mellitus without complications; F32.A Depression, unspecified; Z72.0 Tobacco use
CPT/HCPCS: 20553; J1040; Q9966

== ENCOUNTER → 2021-05-14 11:43 | Outpatient (POV) | payer MEDICARE, SELFPAY ==
[2021-05-14 11:49] VITALS: BP 139/77; PULSE 82; RESP 18; O2SAT 98; BMI 42.5
--- NOTE | 2021-05-14 11:55 | HMH.PAINSOAP ---
[facility] Pain Management SOAP Note Subjective:: Patient is a pleasant 50-year-old female who comes in here today for follow-up after a trigger point injection of her bilateral splenius services, cervical paraspinal, and upper trapezius muscles. After the procedure, patient says that she had a lot of relief of about 20%. Patient still rates her pain today as 8 out of 10. Patient says that she is able to tolerate her neck and shoulder pain now compared to before. She denies any issues with the procedure. Her [place] is [phone] with an active morphine equivalent of 5. Review of Systems General: No recent weight changes, no fever, no sleep disturbances Respiratory: No cough, no shortness of air, no recurring pulmonary infections Cardiovascular/peripheral vascular: No chest pain, no palpitations, no edema, no shortness of breath Gastrointestinal: No new onset incontinence, normal bowel movements reported Genitourinary: No new onset incontinence Musculoskeletal:neck and shoulder pain Psychiatric: [Normal mood/affect] Neurological: [Denies weakness in extremities], [denies balance issues] Objective:: Physical exam General: Alert and oriented x3, no acute distress, pleasant and cooperative Lungs: Respirations even and unlabored, symmetrical chest expansion Eyes: PERRL Musculoskeletal: Flexion and extension of cervical [spine] somewhat guarded secondary to pain, [antalgic gait noted] Neurological: Speech clear, no gross sensory deficit Assessment:: Myofascial pain in the neck and shoulder muscles Plan:: Patient had a lot of relief from the trigger point procedure with no issues. We will schedule the patient for another trigger point injection of her bilateral splenius services, cervical paraspinal, and upper trapezius muscles. Risks and benefits of the procedure have been explained to the patient. Patient would like to proceed with the procedure. Patient has been instructed to contact the clinic with any concerns before the next appointment. Dr. Frank has reviewed this note and agrees with this plan of care. This note was dictated using voice recognition software and make contain errors or omissions. [facility] History Medical History: Reports:: Arrhythmia, Asthma, Chronic Obstructive Pulmonary Disease (COPD), Cerebrovascular Accident, Depression, Diabetes Mellitus Type 2, Gastroesophageal Reflux Disease(GERD), Hyperlipidemia, Hypertension, Migraine Denies:: Cancer, Diabetes Mellitus Type 1, MRSA, Seizures *Have you ever received a pneumonia vaccine?: No *Have you received a flu vaccine this season?: Yes Other Medical History: Reports: Arthritis, Other. Denies: Blood Transfusion Reaction Laterality Cases: Bilateral: Tonsillectomy Other Surgeries: Yes: Cholecystectomy, Colonoscopy, , EGD, Hysterectomy-Partial, Tubal Ligation Amputation: No Fractures: Yes (LT ANKLE) - *Social History Smoking Status: Current every day smoker Tobacco Type: cigarettes # Packs/Day (cigarettes): 1 Alcohol Intake: never Alcohol Intake Frequency:: holidays/special occasions only Substance Use Type: denies use *Occupational Status:: unemployed Housing: house Household Members: friend(s) *Travel in the last 8 weeks: None - Psychiatric History Pschychiatric History:: Reports:: Depression Family Hx:: Diabetes, Coronary Artery Disease, Hypertension
== END ==
PROVIDERS: Visit Provider Clinical Nurse Specialist Family Health
DX: M79.12 Myalgia of auxiliary muscles, head and neck (principal)
CPT/HCPCS: 99212; G0463

== ENCOUNTER 2021-05-27 09:32 | Day surgery (SDC) | payer MEDICARE, SELFPAY ==
[2021-05-27 09:55] VITALS: BP 131/84; PULSE 83; RESP 20; TEMP 36.3; O2SAT 98; BMI 43.4
[2021-05-27 10:09] VITALS: BP 136/82; PULSE 83; RESP 18; O2SAT 98
[2021-05-27 10:10] VITALS: PULSE 82; RESP 18; O2SAT 97
--- NOTE | 2021-05-27 10:17 | P.PCN_ITS ---
- Procedure Date: 05/27/21 Time: 10:17 Anesthesiologist:: Monty Frank MD Complications:: None Pre-procedure Diagnosis:: Neck pain myofascial in origin over bilateral cervical paraspinous muscles and upper trapezius muscles Post-procedure Diagnosis:: Same Indications for Procedure:: Patient is a pleasant 50-year-old white female who we are treating for neck pain which is myofascial in origin over bilateral cervical paraspinous muscles and upper trapezius muscles. She has had trigger point injections in the past which have helped significantly. She does have some myofascial pain which is returned over bilateral cervical paraspinous muscles and upper trapezius muscles. We will plan on repeat trigger point injections today. Procedure Details:: Trigger point injections x8 to bilateral cervical paraspinous muscles and upper trapezius muscles. Informed consent was obtained risk and benefits of the procedure were explained to the patient. Patient was taken the procedure room. The neck and shoulders were prepped using ChloraPrep. Trigger points were palpated and marked. Each of these trigger points were injected with bupivacaine 0.25% 3 mL and Depo- Medrol 10 mg. A total of 8 trigger points were injected over bilateral cervical paraspinous muscles and upper trapezius muscles. We used a total of 80 mg Depo- Medrol for all 8 trigger points. Patient tolerated procedure well with no complications. Plan and Disposition:: We will follow-up with this patient in 2 weeks. Will reevaluate her symptoms at that time.
[2021-05-27 10:25] VITALS: BP 126/68; PULSE 77; RESP 20; O2SAT 97
== END 2021-05-27 10:26 | disposition home or self-care (01) ==
LOC: SC.PAINP 09:33
PROVIDERS: PCP Nurse Practitioner Family; Visit Provider Anesthesiology
DX: M79.12 Myalgia of auxiliary muscles, head and neck (principal); G43.909 Migraine, unspecified, not intractable, without status migrainosus; E78.5 Hyperlipidemia, unspecified; I10 Essential (primary) hypertension; J44.9 Chronic obstructive pulmonary disease, unspecified; K21.9 Gastro-esophageal reflux disease without esophagitis; E11.9 Type 2 diabetes mellitus without complications; F32.A Depression, unspecified; Z72.0 Tobacco use; M19.90 Unspecified osteoarthritis, unspecified site
CPT/HCPCS: 20553; J1040

== ENCOUNTER → 2021-09-01 13:00 | Outpatient (CLI) | payer MEDICARE, SELFPAY ==
--- NOTE | 2021-09-01 13:08 | MM_ITS ---
PROCEDURE INFORMATION: Exam: Bilateral Screening 3D Mammography Exam date and time: 09/01/2021 1:13 PM Age: 50 years old Clinical indication: Baseline. Her maternal grandmother had breast cancer. TECHNIQUE: Imaging protocol: Bilateral Screening tomosynthesis and 2D mammography including computer-aided detection (CAD) when performed. COMPARISON: No relevant prior studies available. FINDINGS: MAMMOGRAPHY: Breast composition: The breast tissue is heterogeneously dense, which may obscure small masses. Mass: Possible oval 1.3 cm mass in the inner right breast, middle 3rd, CC view only, projects very close to the skin in the tomosynthesis images. Architectural distortion/asymmetry: Focal architectural distortion and asymmetry, up to 3 cm, in the right upper inner breast posterior 3rd. Calcifications: Focal calcifications in the left upper breast, middle 3rd, in the MLO view, localized to the skin in the tomosynthesis images. No suspicious calcifications. Skin thickening: None. Axillary adenopathy: None. IMPRESSION: Patient to be recalled for for further evaluation of possible architectural distortion and asymmetry in the right breast, with right diagnostic spot compression in the CC and MLO views and right breast ultrasound. Possible mass in the inner right breast may be related to the skin, correlate clinically and if skin finding noted, ambreen with an oval skin marker and repeat CC and MLO views. If not related to the skin, right diagnostic spot compression in the CC projection and full field true lateral views, and right breast ultrasound, are recommended. ASSESSMENT: BI-RADS Category 0: Incomplete- Need Additional Imaging Evaluation and/or Prior Mammograms for Comparison
== END ==
PROVIDERS: PCP Nurse Practitioner Family; Visit Provider Obstetrics & Gynecology
DX: Z12.31 Encounter for screening mammogram for malignant neoplasm of breast (principal)
CPT/HCPCS: 77063; 77067

== ENCOUNTER → 2021-09-08 14:36 | Outpatient (CLI) | payer MEDICARE, SELFPAY | LOC: RT 14:37 | PROVIDERS: PCP Nurse Practitioner Family; Visit Provider Nurse Practitioner Family | DX: F11.90 Opioid use, unspecified, uncomplicated (principal); G47.33 Obstructive sleep apnea (adult) (pediatric) | CPT/HCPCS: 94762 ==

== ENCOUNTER → 2021-09-14 13:50 | Outpatient (CLI) | payer MEDICARE, SELFPAY ==
--- NOTE | 2021-09-14 13:55 | MM_ITS ---
PROCEDURE INFORMATION: Exam: US Right Breast, Complete MG Right Diagnostic Breast Tomosynthesis Exam date and time: 09/14/2021 2:02 PM Age: 50 years old Clinical indication: Recall on the basis of screening mammogram from 09/01/2021 for further evaluation of possible mass and architectural distortion in the right breast. TECHNIQUE: Imaging protocol: Complete ultrasound of all four quadrants of the Right breast and the retroareolar regions, including ultrasound of the axilla when performed. Right Diagnostic tomosynthesis and 2D mammography including computer-aided detection (CAD) when performed. MAMMOGRAPHY: Spot compression demonstrates persistent focal asymmetry, approximately 3.0 cm, in the right central breast, which in this CC positioning projects more along the retroareolar nipple line/outer breast, about 7 cm from the nipple, and in the upper breast in the ML view. This is better seen in the CC view. Spot spot compression shows that the possible mass in the inner breast corresponds to the nipple, not seen in profile in the prior image. ULTRASOUND: Right sonography all 4 quadrants, retroareolar and axilla demonstrate no cystic, solid, or non masslike finding. Sonographically unremarkable right axillary lymph node. IMPRESSION: Suggest stereotactic biopsy of the focal asymmetry in the right central breast, best seen in the CC view. ASSESSMENT: BI-RADS Category 4: Suspicious
== END ==
LOC: RAD 13:50
PROVIDERS: PCP Nurse Practitioner Family; Visit Provider Obstetrics & Gynecology
DX: R92.8 Other abnormal and inconclusive findings on diagnostic imaging of breast (principal)
CPT/HCPCS: 76641; 77061; 77065; G0279

== ENCOUNTER → 2021-09-22 08:48 | Outpatient (CLI) | payer MEDICARE, SELFPAY ==
--- NOTE | 2021-09-22 08:49 | MM_ITS ---
FINAL REPORT CLINICAL HISTORY: . stereo bx, abnormal mammogram FINDINGS: Stereotactic biopsy with clip placement. History: Abnormal mammogram. Focal asymmetry. Technique: Standard written informed consent was obtained. Patient was placed prone on the procedure table. Focal asymmetry was localized with stereotactic images. A superior to inferior approach was utilized. Local anesthesia was achieved with 1% lidocaine mixed with epinephrine. The stereotactic biopsy needle was advanced toward a lesion of interest. The needle was fired into final position. Images confirm a suitable needle location for biopsy sampling. Multiple vacuum assisted core biopsies were then obtained with sampling performed in a radial fashion. Upon completion of biopsy a marker clip was deployed in good position in the biopsy bed. Small hematoma was noted at the biopsy site. Procedure was well tolerated. Histopathology revealed benign findings, concordant with the mammographic findings. IMPRESSION: 1. Technically successful stereotactic biopsy of focal asymmetry right breast 2. Biopsy marker clip deployed in good position 3. Postbiopsy mammogram shows normal postbiopsy changes with biopsy marker clip in good position 4. 6 month diagnostic mammography follow-up is recommended as part of post benign biopsy routine surveillance Authenticated by Angelia Tobar MD on 10/04/2021 11:02:40 AM [facility]
--- NOTE | 2021-09-22 08:54 | MM_ITS ---
FINAL REPORT CLINICAL HISTORY: . clip placement , S/p bx, Dr Tobar to read FINDINGS: MAMMOGRAM RIGHT TECHNIQUE: Standard digital 2-D views COMPARISON: Prebiopsy exam for 1122 DENSITY: There are scattered areas of fibroglandular density FINDINGS: Post biopsy marker clip is noted to be in satisfactory position. Postbiopsy changes are noted with a small hematoma in the biopsy bed. Biopsy clip is noted in good position in the right upper inner quadrant at the site of previously described focal asymmetry.. IMPRESSION: Biopsy marker clip in good position with associated small hematoma RECOMMENDATION: Pending histopathology evaluation. If biopsy results are negative, recommend 6 month mammographic follow-up. Authenticated by Angelia Tobar MD on 10/19/2021 10:19:05 PM [facility]
== END ==
LOC: RAD 08:49
PROVIDERS: PCP Nurse Practitioner Family; Visit Provider Obstetrics & Gynecology
DX: R92.8 Other abnormal and inconclusive findings on diagnostic imaging of breast (principal)
CPT/HCPCS: 19081; 77065; 88305

== ENCOUNTER → 2021-10-08 15:17 | Outpatient (CLI) | payer MEDICARE, SELFPAY ==
--- NOTE | 2021-10-08 15:17 | CT_ITS ---
FINAL REPORT CLINICAL HISTORY: Headache, AMBULANCE DRIVER shunt, memory loss COMPARISON: November 07, 2019 FINDINGS: Axial images of the head were obtained without contrast. Coronal reformatted images were also obtained.This study was performed with techniques to keep radiation doses as low as reasonably achievable (ALARA). Individualized dose reduction techniques using automated exposure control or adjustment of mA and/or kV according to the patient's size were employed. There is no evidence of intracranial hemorrhage or mass. A AMBULANCE DRIVER shunt is in place. The ventricular size is within normal limits. There is no evidence of shift of the midline structures. No abnormal extra axial fluid collection is identified. No skull abnormality is seen on the bone window images. There is total opacification of the right maxillary sinus, worse from prior. IMPRESSION: Stable AMBULANCE DRIVER shunt. No acute intracranial abnormality. Total opacification of the right maxillary sinus, worse from prior. Reviewed, Interpreted and Dictated by Baljit Bella III, MD Transcribed by Miguel Flynn Authenticated by Baljit Bella III, MD on 10/08/2021 04:56:58 PM [facility]
== END ==
LOC: RAD 15:17
PROVIDERS: PCP Nurse Practitioner Family; Visit Provider Specialist
DX: G93.2 Benign intracranial hypertension (principal); Z98.2 Presence of cerebrospinal fluid drainage device
CPT/HCPCS: 70450

== ENCOUNTER → 2021-11-14 10:51 | Outpatient (CLI) | payer MEDICARE, SELFPAY ==
--- NOTE | 2021-11-14 10:53 | ECG_ITS ---
APPROVED REPORT Exam: Resting ECG HR:70 bpm ECG Measurements Heart Rate 70 AXES WA 163 P 51 QRSd 86 QRS 49 QT 379 T 43 QTc 400 Conclusion SINUS RHYTHM LOW QRS VOLTAGE IN PRECORDIAL LEADS [QRS DEFLECTION < 1.0 mV IN CHEST LEADS] BORDERLINE ECG UNCONFIRMED REPORT Electronically signed by : Bassam Clarke MD 11/14/2021 20:15:12
[2021-11-14 10:59] LABS: MANUAL DIFFERENTIAL MANUAL DIFFERENTIAL (MANUAL DIFF)
--- NOTE | 2021-11-14 11:31 | XR_ITS ---
PROCEDURE INFORMATION: Exam: XR Chest Exam date and time: 11/14/2021 11:32 AM Age: 51 years old Clinical indication: Pre-operative exam; Respiratory screening exam; Additional info: Chronic sinusitis, pre op for sinus surgery Tuesday TECHNIQUE: Imaging protocol: XR of the chest. Views: 2 views. COMPARISON: CT CERVICAL SPINE WO CON 02/11/2021 7:11 AM FINDINGS: Tubes, catheters and devices: Shunt tubing overlies the right chest Lungs: Hyperexpanded lung chang consistent with COPD Pleural spaces: Unremarkable. No pleural effusion. No pneumothorax. Heart/Mediastinum: Unremarkable. No cardiomegaly. Bones/joints: Unremarkable. IMPRESSION: No acute process
[2021-11-14 12:45] LABS: Basophils # 0.3 K/mm3 (0-0.2); Basophils % 3.1 % (0.1-2.0); Eosinophils # 0.2 K/mm3 (0.0-0.4); Eosinophils % 1.8 % (0.1-12.0); Hematocrit 43.6 % (37.0-47.0); Hemoglobin 14.7 g/dL (12.2-16.2); Lymphocytes # 2.4 K/mm3 (0.7-4.5); Lymphocytes % 27.4 % (10-50); Mean Corpuscular HGB Conc 33.8 g/dL (31.8-35.4); Mean Corpuscular Volume 91.7 fl (81-99); Mean Platelet Volume 8.6 fl (7.4-10.4); Monocytes # 0.5 K/mm3 (0.1-1.0); Monocytes % 5.9 % (1.7-9.3); Neutrophils # 5.5 K/mm3 (1.8-7.8); Neutrophils % 61.7 % (37.0-80.0); Platelet Count 303 K/mm3 (142-424); Red Blood Count 4.75 M/mm3 (4.20-5.40); Red Cell Distribution Width 14.6 % (11.5-17.5); White Blood Count 8.9 K/mm3 (4.8-10.8)
[2021-11-14 15:18] LABS: Alanine Aminotransferase 37 U/L (12-78); Albumin Level 3.3 g/dl (3.5-5.0); Albumin/Globulin Ratio 1.3 (1.1-1.8); Alkaline Phosphatase 132 U/L (38-126); Anion Gap 11.7 mEq/L (5-15); Aspartate Amino Transferase 29 U/L (14-36); Blood Urea Nitrogen 12 mg/dl (7-17); Calcium 8.7 mg/dl (8.4-10.2); Carbon Dioxide 26 mmol/L (22.0-30.0); Chloride 102 mmol/L (98-107); Estimated Glomerular Filt Rate 168 ml/min (>60); GFR (African American) 203 ML/MIN (>60); Globulin 2.6 g/dL (1.3-3.2); Glucose 298 mg/dl (74-100); Potassium 4.7 mmoL/L (3.5-5.1); Sodium 135 mmol/L (136-145); Total Protein,Serum 5.9 g/dl (6.3-8.2)
[2021-11-14 15:22] LABS: Bilirubin,Total < 0.1 mg/dl (0.2-1.3)
[2021-11-14 17:58] LABS: Eosinophils % 1 % (0-3); Lymphocytes % 26 % (10-50); Monocytes % 5 % (2-9); Neutrophils % 65 % (42-76); Platelet Estimate Normal; Stomatocytes 2+; Total Cells Counted 100
== END ==
LOC: LAB 10:53
PROVIDERS: PCP Nurse Practitioner Family; Visit Provider Otolaryngology
DX: J32.9 Chronic sinusitis, unspecified (principal); R93.0 Abnormal findings on diagnostic imaging of skull and head, not elsewhere classified; Z01.818 Encounter for other preprocedural examination; Z20.822 Contact with and (suspected) exposure to COVID-19
CPT/HCPCS: 36415; 71046; 80053; 85007; 85014; 85018; 85048; 85049; C9803; U0003; U0005

== ENCOUNTER 2021-11-16 07:09 | Day surgery (SDC) | payer MEDICARE, SELFPAY ==
[2021-11-11 09:26] VITALS: BMI 43.4
[2021-11-16 07:25] VITALS: BP 129/71; PULSE 78; RESP 18; TEMP 36.6; O2SAT 94
[2021-11-16 07:41] LABS: POC Glucose,Bedside 295 (70-110)
--- NOTE | 2021-11-16 08:58 | SUR.PHASEII ---
CANCELLED BY ANESTHESIA RFEEBACK MAINTENANCE CHIEF DUE TO NEEDING A CARDIAC WORKUP- PT WAS COMPLAINING OF SHORTNESS OF BREATH DR MARIBEL ADAM WITH DECISION
== END 2021-11-16 07:30 | disposition home or self-care (01) ==
LOC: OR 07:10
PROVIDERS: PCP Nurse Practitioner Family; Visit Provider Otolaryngology
DX: Z53.8 Procedure and treatment not carried out for other reasons (principal); R06.02 Shortness of breath
CPT/HCPCS: 31256; 82962

== ENCOUNTER → 2021-12-03 07:23 | Outpatient (CLI) | payer MEDICARE, SELFPAY ==
--- NOTE | 2021-12-03 | CA_ITS ---
APPROVED REPORT Exam: Pharmacologic Technologist: Jaylyn Renae, Ht: 5 ft 1 in Wt: 237 lbs BSA: 2.03 m2 HR: 63 bpm BP: 112/61 mmHg Rhythm: NSR, LOW QRS VOLTAGE IN PRECORDIAL LEADS Medical History Medical History: HTN, Hyperlipidemia, Diabetes Medications: Metoprolol,,,,, Metformin,,,,, Pantoprazole,,,,, Atorvastatin,,,,, INSULIN,,,,, MeLOXICAM,,,,, DulOXETINE,,,,, DilTiazem,,,,, Pregabalin,,,,, CetIRIZINE,,,,, MeMANTINE,,,,, OxYbuYnin,,,,, Allergies: No known drug allergies Cardiac Risk Factors: HTN, Hyperlipidemia, Diabetes Stress Test Details Test: LEXISCAN HR Resting HR: 66 bpm Max Heart Rate (APMHR): 168.696302 bpm Max HR Achieved: 74 bpm Target HR (85% APMHR): 142.527633 bpm % of APMHR: 44.05 Recovery HR: 66 bpm BP Resting BP: 112/61 mmHg Max BP: 119/68 mmHg Recovery BP: 112.0/60.0 mmHg ECG Resting ECG: NSR, LOW QRS VOLTAGE IN PRECORDIAL LEADS Clinical Exercise duration: 04:05 min Highest Stage Achieved: Exercise capacity: 1.0 METs Stress ECG Conclusion PT HAD MILD SOA, MILD HEAD DISCOMFORT. NO CP. NO SIGNIFICANT CHANGES. UNREMARKABLE LEXISCAN STRESS. MYOVIEW IMAGES REPORTED SEPARATELY. Test Summary REST 05:39 . . 66 . 112/ 61 . . Stage 1 01:00 . . 73 . . . . Stage 2 01:00 . . 69 . 119/ 68 . . Stage 3 01:00 . . 71 . 115/ 65 . . Stage 4 01:00 . . 66 . 117/ 58 . . Stage 4 01:05 . . 68 . 117/ 58 . Stop exercise at 04:05 RECOVERY 01:00 . . 69 . . . . RECOVERY 02:00 . . 68 . 119/ 66 . . RECOVERY 03:00 . . 69 . 108/ 64 . . RECOVERY 03:52 . . 67 . 112/ 60 . . Electronically signed by : Daniel Ordoñez MD 12/04/2021 09:31:11
--- NOTE | 2021-12-03 07:24 | CA_ITS ---
APPROVED REPORT EXAM: Comprehensive 2D, Doppler, and color-flow Echocardiogram Rn Transition: Michelle Carnes RVT Ht: 5 ft 1 in Wt: 236lbs BSA: 2.03 BP: 120/71 mmHg Indications: SOA,CP,PRE-OP,GERD,DM,HTN,HLD,COPD 2D Dimensions LVOT 2.27 cm (M/F) 1.5-2.5 LA Volume 37.60 mL LA Volume Index 18.61 mL/m2 (M/F) 16-34 M-Mode Dimensions RVDd 1.66 cm (0.9-2.6) LA Diam 4.24 cm (1.9-4.0) LVDd 5.69 cm (3.5-5.7) Ao Diam 3.17 cm (2.0-3.7) LVDs 4.08 cm (3.5-5.7) IVSd 0.55 cm (0.6-1.1) PWd 0.64 cm (0.6-1.1) EF (Teich) 54.00% FS 28.30% EDV (Teich) 159.40 mL TAPSE 2.42 (<1.7) ESV (Teich) 73.40 mL LV Diastology E Decel Time 190.00 (160-240 msec) E/A Ratio 0.9 MED E' 7.00 (< 7 cm/sec) E'/MED E' Ratio 13.74 (>14) LAT E' 8.80 (<10 cm/sec) E/LAT E' Ratio 10.93 (>14) Aortic Valve AO Peak GR. 9.30 mmHg Mitral Valve MV E Max James. 96.00 (40-130 cm/s) MV A Velocity 108.00 (40-130 cm/s) E/A Ratio 0.89 MV Decel. Time 190.00 (160-240 ms) MV PHT 56.00 ms Pulmonary Valve PV Peak Velocity 58.00 (50-150 cm/s) Tricuspid Valve TR P. Velocity 172.00 cm/s RAP Estimate 10.00 mmHg RVSP 21.80 mmHg Left Ventricle Left atrium is mildly enlarged, left ventricle is normal size mild concentric left ventricular hypertrophy, estimated ejection fraction 55% with no regional wall motion abnormality, grade 1 diastolic dysfunction seen without tissue Doppler evidence of raise left atrial pressure. Right Ventricle Right atrium and right ventricle are mildly enlarged with normal contractility. Aortic Valve Aortic valve is thickened and calcified without aortic stenosis or aortic insufficiency. Mitral Valve Mitral valve grossly normal, there is trace mitral regurgitation. Tricuspid Valve Tricuspid grossly normal, there is trace tricuspid regurgitation, tricuspid regurgitation jet velocity is inadequate for calculation of the right ventricular systolic pressure. Pulmonic Valve Pulmonic valve is poorly visualized. Great Vessels Aortic root is normal size. Inferior vena cava is normal size with normal inspiratory collapse. Pericardium No significant pericardial effusion noted. Conclusion 1. Mild biatrial normal, normal left ventricular size mild concentric left ventricular hypertrophy, estimated ejection fraction 55% with no regional wall motion abnormality, grade 1 diastolic dysfunction seen without tissue Doppler evidence of raise left atrial pressure. 2. Mildly enlarged right ventricle with normal contractility. 3. Trace mitral and tricuspid regurgitation. 4. No significant pericardial effusion. 5. Inferior vena cava is normal size with normal inspiratory collapse. Electronically signed by : Daniel Ordoñez MD 12/04/2021 11:43:42
--- NOTE | 2021-12-03 07:27 | NM_ITS ---
APPROVED REPORT Exam: Nuclear Stress Test Indication: chest pain..short of breath..fatigue Stress Tech: Jaylyn GARIBAY Tech:ULI Mercado RT(R)(N) Ht: 5 ft 1 in Wt: 235 lbs Bra Size: 44d HR: 66 bpm BP: 112/61 mmHg BSA: 2.02 m2 TID: 1.22 BMI: 44.3 History: chest pain..short of breath..fatigue5 Procedure: Patient received a 0.4 mg of intravenous Lexiscan, resting heart rate 66 bpm, resting blood pressure 112/61 mmHg, with Lexiscan maximum heart rate achived was 74 bpm which is Less than 85 % of the maximum predicted heart rate and blood pressure was 119/68 mmHg. With Lexiscan, patient denied any complaint of chest pain. pt was unable to lay on her belly for prone images Electrocardiogram Resting electrocardiogram shows sinus rhythm, with Lexiscan less than 1.[address] segment depression noted from the baseline EKG. The EKG portion of the Lexiscan is nondiagnostic. Cardiac Stress and Resting SPECT Images: Cardiac Stress and Resting SPECT images were obtained using technetium 99m Myoview 30.9 mCi stress and 9.67 mCi at rest. Gated SPECT analysis of segmental wall motion and calculation of the ejection fraction also done. Prone images were not obtained. Cardiac stress and rest SPECT may show fixed defect in the anterior wall with normal contractility in the gated SPECT is likely secondary to soft tissue attenuation, no reversible ischemia seen, computer derived ejection fraction is 54% with no regional wall motion abnormality, right ventricle is normal size and contractility. Conclusion: 1. The EKG portion of the Lexiscan is nondiagnostic. 2. No scintigraphic evidence of reversible ischemia seen, computer derived ejection fraction 54% with no regional wall motion abnormality, right ventricle is normal size and contractility. 3. Likely normal Lexiscan Myoview study. Electronically signed by : Daniel Ordoñez MD 12/04/2021 09:42:37
== END ==
LOC: RAD 07:24
PROVIDERS: PCP Nurse Practitioner Family; Visit Provider Nurse Practitioner Family
DX: R06.00 Dyspnea, unspecified (principal); R07.9 Chest pain, unspecified; R42 Dizziness and giddiness; R60.0 Localized edema; Z01.810 Encounter for preprocedural cardiovascular examination; Z72.0 Tobacco use; Z82.49 Family history of ischemic heart disease and other diseases of the circulatory system
CPT/HCPCS: 78452; 93017; 93306; A9502; J2785

== ENCOUNTER → 2022-06-17 07:43 | Outpatient (CLI) | payer MEDICARE, SELFPAY ==
--- NOTE | 2022-06-17 07:50 | US_ITS ---
FINAL REPORT CLINICAL HISTORY: LUQ ABD PAIN FINDINGS: Sonographic images of the abdomen were obtained. The liver has increased echogenicity consistent with mild fatty infiltration. The gallbladder is surgically absent. There is no evidence of biliary ductal dilatation. The common hepatic duct measures 2 mm, which is within normal limits. There is a hypoechoic area in the pancreatic tail measuring 4 cm which is worrisome for a mass. The spleen size is normal. The right kidney measures 12.0 cm in length. The left kidney measures 11.3 cm in length. There is normal renal echogenicity. There is no evidence of hydronephrosis. The aorta has an unremarkable appearance. Limited images of the inferior vena cava are unremarkable. IMPRESSION: 4 cm hypoechoic area in the pancreatic tail worrisome for a mass. Recommend pancreas protocol CT for further evaluation. Mild fatty liver. Cholecystectomy. Reviewed, Interpreted and Dictated by Baljit Bella III, MD Transcribed by Nancy Rojas Authenticated and [facility]
== END ==
LOC: RAD 07:44
PROVIDERS: PCP Internal Medicine Adolescent Medicine; Visit Provider Nurse Practitioner Family
DX: R10.12 Left upper quadrant pain (principal)
CPT/HCPCS: 76700

== ENCOUNTER → 2022-06-21 11:21 | Outpatient (CLI) | payer MEDICARE, SELFPAY ==
--- NOTE | 2022-06-21 11:36 | CT_ITS ---
FINAL REPORT TECHNIQUE: Pre-and postcontrast axial CT images of the abdomen and pelvis were obtained. Coronal reformatted images were also obtained and reviewed.This study was performed with techniques to keep radiation doses as low as reasonably achievable (ALARA). Individualized dose reduction techniques using automated exposure control or adjustment of mA and/or kV according to the patient''''s size were employed. CLINICAL HISTORY: LUQ ABDOMINAL PAIN, pancreatic mass seen on ultrasound COMPARISON: Ultrasound performed 06/17/2022 FINDINGS: CT OF THE ABDOMEN AND PELVIS WITH AND WITHOUT CONTRAST Abdomen: The lung bases are clear. The heart is normal in size. The liver has an unremarkable appearance, without evidence of mass or biliary ductal dilatation. The spleen is unremarkable. No adrenal mass is present. The pancreas has an unremarkable appearance. Specifically, no mass is identified at the tail the pancreas. The kidneys are normal, without evidence of mass or hydronephrosis. The aorta is normal in caliber. There is no free fluid or adenopathy. No mass or abnormal fluid collection is seen. Pelvis: The appendix is normal. Patient is status post hysterectomy. The urinary bladder is unremarkable. No inflammatory process is seen. There is no evidence of mass or adenopathy. There is no evidence of bowel obstruction. There is moderate retained stool throughout the colon. Precontrast imaging demonstrates no evidence of nephrolithiasis. IMPRESSION: Constipation. No pancreatic mass identified. Reviewed, Interpreted and Dictated by Munira Cardona MD Transcribed by Dang Bang Authenticated and [facility]
[2022-06-21 11:46] LABS: Blood Urea Nitrogen 17 mg/dl (7-17); Estimated Glomerular Filt Rate 105 ml/min (>60); GFR (African American) 127 ML/MIN (>60)
== END ==
PROVIDERS: PCP Nurse Practitioner Family; Visit Provider Nurse Practitioner Family
DX: R10.12 Left upper quadrant pain (principal)
CPT/HCPCS: 36415; 74178; 82565; 84520; Q9967

== ENCOUNTER → 2022-12-17 15:02 | Outpatient (CLI) | payer MEDICARE, SELFPAY ==
--- NOTE | 2022-12-17 15:09 | XR_ITS ---
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 There are degenerative changes to the lower cervical spine with a disc osteophyte complex at C5-6. There is no malalignment. IMPRESSION: No acute process. Degenerative changes to the lower cervical spine with a disc osteophyte complex at C5-6. THORACIC SPINE Three views demonstrate no acute fracture. There are moderate and severe degenerative changes with multilevel osteophytes. There is no malalignment. A presumed shunt catheter is present. IMPRESSION: No acute process. Moderate and severe degenerative changes with multilevel osteophytes. LUMBAR SPINE Three views demonstrate no acute fracture. There is mild degenerative change. There is mild leftward curvature, the alignment is otherwise stable. There are mild vascular calcifications. IMPRESSION: Mild degenerative change. Mild leftward curvature. Reviewed, Interpreted and Dictated by Baljit Bella III, MD Transcribed by Lissette Noel Authenticated and . [facility]
--- NOTE | 2022-12-17 15:09 | XR_ITS ---
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 There is no acute fracture or dislocation. There is mild degenerative change. There is no soft tissue abnormality. A plantar calcaneal spur is present. IMPRESSION: No acute abnormality. Mild degenerative change. Reviewed, Interpreted and Dictated by Baljit Bella III, MD Transcribed by Lissette Noel Authenticated and . [facility]
--- NOTE | 2022-12-17 15:09 | XR_ITS ---
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 There is no acute fracture or dislocation. There is mild degenerative change present. There are calcifications inferior to the lateral malleolus and lateral to the talus which are new since the prior, may represent avulsion fractures but of uncertain age. Diffuse soft tissue swelling is present. A plantar calcaneal spur is seen. IMPRESSION: Mild degenerative change. New calcifications as above, may represent avulsion fractures but of uncertain age. Reviewed, Interpreted and Dictated by Baljit Bella III, MD Transcribed by Lissette Noel Authenticated and [facility]
== END ==
LOC: RAD 15:04
PROVIDERS: PCP Nurse Practitioner Family; Visit Provider Nurse Practitioner Family
DX: M54.2 Cervicalgia (principal); M54.6 Pain in thoracic spine; M54.50 Low back pain, unspecified; M25.571 Pain in right ankle and joints of right foot; M79.671 Pain in right foot
CPT/HCPCS: 72084; 73610; 73630

== ENCOUNTER → 2022-12-23 09:50 | Outpatient (POV) | payer MEDICARE, SELFPAY | PROVIDERS: Visit Provider Specialist/Technologist | DX: Z00.00 Encounter for general adult medical examination without abnormal findings (principal) ==

== ENCOUNTER → 2023-01-04 14:57 | Outpatient (CLI) | payer MEDICARE, SELFPAY ==
[2023-01-04 15:33] LABS: Basophils # 0.1 K/mm3 (0-0.2); Basophils % 0.7 % (0.1-2.0); Eosinophils # 0.2 K/mm3 (0.0-0.4); Eosinophils % 1.6 % (0.1-12.0); Hematocrit 42.6 % (37.0-47.0); Hemoglobin 13.6 g/dL (12.2-16.2); Lymphocytes # 3.2 K/mm3 (0.7-4.5); Lymphocytes % 26.5 % (10-50); Mean Corpuscular HGB Conc 31.8 g/dL (31.8-35.4); Mean Corpuscular Hemoglobin 29.1 pg (27.0-31.2); Mean Corpuscular Volume 91.5 fl (81-99); Mean Platelet Volume 7.4 fl (7.4-10.4); Monocytes # 0.7 K/mm3 (0.1-1.0); Monocytes % 5.5 % (1.7-9.3); Neutrophils # 7.8 K/mm3 (1.8-7.8); Neutrophils % 65.6 % (37.0-80.0); Platelet Count 306 K/mm3 (142-424); Red Blood Count 4.65 M/mm3 (4.20-5.40); Red Cell Distribution Width 14.3 % (11.5-17.5); White Blood Count 11.9 K/mm3 (4.8-10.8)
[2023-01-04 16:05] LABS: Erythrocyte Sedimentation Rate 43 mm/hr (0-30)
[2023-01-04 16:37] LABS: Alanine Aminotransferase 38 U/L (12-78); Albumin Level 3.8 g/dl (3.5-5.0); Albumin/Globulin Ratio 1.3 (1.1-1.8); Alkaline Phosphatase 120 U/L (38-126); Anion Gap 10.8 mEq/L (5-15); Aspartate Amino Transferase 32 U/L (14-36); Bilirubin,Total 0.4 mg/dl (0.2-1.3); Blood Urea Nitrogen 10 mg/dl (7-17); Calcium 9.2 mg/dl (8.4-10.2); Carbon Dioxide 27 mmol/L (22.0-30.0); Chloride 106 mmol/L (98-107); Creatine Kinase 47 U/L (30-135); Estimated Glomerular Filt Rate 129 ml/min (>60); GFR (African American) 156 ML/MIN (>60); Globulin 2.9 g/dL (1.3-3.2); Glucose 177 mg/dl (74-100); Potassium 4.8 mmoL/L (3.5-5.1); Sodium 139 mmol/L (136-145); Total Protein,Serum 6.7 g/dl (6.3-8.2)
[2023-01-06 15:19] LABS: Aldolase 6.2 U/L (3.3-10.3)
== END ==
PROVIDERS: PCP Nurse Practitioner Family; Visit Provider Specialist
DX: R53.1 Weakness (principal); G43.009 Migraine without aura, not intractable, without status migrainosus; E11.9 Type 2 diabetes mellitus without complications; G47.33 Obstructive sleep apnea (adult) (pediatric); Z99.89 Dependence on other enabling machines and devices
CPT/HCPCS: 36415; 80053; 82085; 82550; 83036; 85025; 85651

== ENCOUNTER → 2023-01-06 16:05 | Outpatient (POV) | payer MEDICARE, SELFPAY | PROVIDERS: Visit Provider Specialist/Technologist | DX: Z00.00 Encounter for general adult medical examination without abnormal findings (principal) ==

== ENCOUNTER → 2023-01-14 10:42 | Outpatient (CLI) | payer MEDICARE, SELFPAY ==
--- NOTE | 2023-01-14 10:44 | CT_ITS ---
FINAL REPORT CLINICAL HISTORY: severe neck pain and weakness COMPARISON: 02/11/2021 FINDINGS: Axial CT images of the cervical spine were obtained without contrast. Sagittal and coronal reformatted images were also obtained. This study was performed with techniques to keep radiation doses as low as reasonably achievable (ALARA). Individualized dose reduction techniques using automated exposure control or adjustment of mA and/or kV according to the patient''s size were employed. There is no evidence of fracture or dislocation. The bony alignment is normal. There are mild and moderate degenerative changes. There are disc osteophyte complexes at C5-6 with neural foraminal narrowing, left greater than right. There is also mild central canal stenosis at C5-6. No paraspinous soft tissue abnormality is seen. Limited images of the upper thorax are unremarkable. IMPRESSION: Degenerative changes, worst at C5-6. Findings are similar to previous. Reviewed, Interpreted and Dictated by Baljit Bella III, MD Transcribed by Nelly Crowley Authenticated and . [facility]
== END ==
LOC: RAD 10:42
PROVIDERS: PCP Nurse Practitioner Family; Visit Provider Specialist
DX: M47.812 Spondylosis without myelopathy or radiculopathy, cervical region (principal)
CPT/HCPCS: 72125

== ENCOUNTER 2023-01-31 09:16 | Day surgery (SDC) | payer MEDICARE, SELFPAY ==
[2023-01-31] VITALS (11 sets, daily range): BP systolic 136–190; BP diastolic 69–95; PULSE 74–83; RESP 12–18; TEMP 36.1–36.7; O2SAT 93–98; BMI 47.2
[2023-01-31 10:32] LABS: POC Glucose,Bedside 280 (70-110)
--- NOTE | 2023-01-31 10:32 | P.PNANES_ITS ---
[facility] Disclaimer: The information contained in this section may have been updated after the patient was seen, as this information can be updated by other users. Medical History Chronic maxillary sinusitis Tinnitus Surgical History History of hysterectomy Family History Other Cancer Coronary artery disease Diabetes Stroke Social History Smoking Status: Current every day smoker tobacco type: cigarettes packs per day: 1 alcohol intake: current substance use type: denies use current occupational status: unemployed Travel in the last 8 weeks: None household members: friend(s) housing: house current occupational exposures/hazards: No caffeine: Yes [facility] Anesthesia Checklist Patient Identification Patient Identification: Arm Band and Verbal (Name & ) Structural Data Admitted From: Home Planned Operative Procedure/s: Endoscopic sinus surgery Consent for Planned Operative Procedure(s) Verified: Yes NPO Status Verified Time NPO: 00:00 Additional verifications Anesthesia Reactions: No Hx Blood Transfusions: No Blood Transfusion Reaction: No Airway Assessment Mallampati Score:: Class III C-Spine Mobility Assessed: Yes TMJ Mobility Assessed: Yes Dentition: Good Dentition Neurological Assessment Level of Consciousness: Awake Hx Seizures: No Numbness or tingling in extremities: No Anesthesia Plan Anesthesia Risk discussed: Yes Anesthesia Plan: Verified ASA Class: III Anesthesia Type: General
--- NOTE | 2023-01-31 12:37 | P.OP_ITS ---
Date of procedure: 01/31/23 Pre-op Diagnosis:: 1. Chronic maxillary sinusitis?right 2. Nasal septal deviation with septal spur?left Post-op Diagnosis:: Same Procedure performed:: 1. Endoscopic left septoplasty 2. Endoscopic right middle meatal antrostomy with tissue removal Surgeon:: Darek Haley III, MD DIGITAL ANALYTICS MANAGER:: Other Anesthesia: GETA Estimated blood loss (mL): 30 Operative findings:: Obstructed right ostiomeatal complex left posterior septal spur Operative note:: The patient was brought to the operating room placed under general endotracheal anesthesia. The nose was prepared with topical Afrin and lidocaine on cottonoids. I also injected 1% lidocaine with epinephrine into the lateral nasal wall on the right and the septal mucosa posteriorly on the left. She was then placed in the lounge chair position and the nose was prepared and draped in the usual fashion. The cottonoids were removed I began the dissection on the left posterior septum. I made an incision anterior to the septal spur and eleva damon the mucosa off of the bony spur. I then made an incision in the cartilage anterior to the spur and removed the cartilage and spur that was making up the deviation. The right septal mucosa remained intact the left side was reapproximated and I placed a a pressed nova pack packing over this area and infiltrated this with saline. Attention was then turned towards the right side the endoscope was used to inspect the middle meatus. I remove the uncinate process there was able to open into the middle meatus and remove polypoid tissue from the medial aspect. There is no evidence of any mucopurulent discharge or obvious infection noted within the sinus cavity. Backbiting instrument was used to open the cavity more fully. A nova pack pack infiltrated with saline was then placed on the right side I then use mupirocin ointment bilaterally. The patient stomach contents were aspirated clear. She was awakened in the operating room taken the recovery room in good condition. Condition: stable Disposition: PACU Complications:: None
--- NOTE | 2023-01-31 12:38 | EXP.ANES.I ---
[facility] Anesthesia Record Part I Anesthesia Record I Intake, IV Amount: 700 Hydration: Adequate Estimated blood loss (mL): 0 Urine output (mL): 0 Blood Products used (#): none Blood Pressure: 159/82 SaO2: 94 Pulse Rate: 83 Airway Patency: Patent Respiratory Rate: 12 Temperature: 98 F Patient is:: Awake and Stable Stable to PACU at:: 12:38
[2023-01-31 12:51] LABS: POC Glucose,Bedside 293 (70-110)
--- NOTE | 2023-01-31 14:02 | P.PNANES_ITS ---
[facility] Anesthesia Record Part II Anesthesia Record Part II Discharge Time: 13:09 Destination: Surgical Day Care (OP Surgery) PACU nurse assessment reviewed?: Yes Patient Condition:: Good Anesthesia Complications:: None Swallowing reflex intact?: Yes Airway Patency: Patent Cyanosis?: No Blood Pressure: 143/81 SaO2: 95 Respiratory Rate: 16 Pulse Rate: 76 Temperature: 97 F Mental Status: Alert & Oriented Pain level:: 0 Nausea and/or vomitting:: None Intake, IV Amount: 0 Hydration: Adequate
== END 2023-01-31 13:55 | disposition home or self-care (01) ==
PROVIDERS: PCP Specialist; Visit Provider Otolaryngology
PROC: (CPT 30520; principal; 2023-01-31 11:30)
DX: J32.0 Chronic maxillary sinusitis (principal); J34.2 Deviated nasal septum; J34.89 Other specified disorders of nose and nasal sinuses; E11.9 Type 2 diabetes mellitus without complications
CPT/HCPCS: 30520; 31267; 82962; 88305; 88311; 96374; J2405

== ENCOUNTER → 2023-02-10 15:40 | Outpatient (CLI) | payer MEDICARE, SELFPAY ==
[2023-02-10 16:20] LABS: Basophils # 0.1 K/mm3 (0-0.2); Basophils % 0.6 % (0.1-2.0); Eosinophils # 0.2 K/mm3 (0.0-0.4); Eosinophils % 1.7 % (0.1-12.0); Hematocrit 41.6 % (37.0-47.0); Hemoglobin 13.5 g/dL (12.2-16.2); Lymphocytes # 3.7 K/mm3 (0.7-4.5); Mean Corpuscular HGB Conc 32.5 g/dL (31.8-35.4); Mean Corpuscular Hemoglobin 29.8 pg (27.0-31.2); Mean Corpuscular Volume 91.7 fl (81-99); Mean Platelet Volume 7.8 fl (7.4-10.4); Monocytes # 0.9 K/mm3 (0.1-1.0); Neutrophils # 9.3 K/mm3 (1.8-7.8); Neutrophils % 65.6 % (37.0-80.0); Platelet Count 313 K/mm3 (142-424); Red Blood Count 4.54 M/mm3 (4.20-5.40); Red Cell Distribution Width 14.4 % (11.5-17.5); White Blood Count 14.2 K/mm3 (4.8-10.8)
[2023-02-10 17:22] LABS: Alanine Aminotransferase 29 U/L (12-78); Albumin Level 3.8 g/dl (3.5-5.0); Albumin/Globulin Ratio 1.3 (1.1-1.8); Alkaline Phosphatase 132 U/L (38-126); Anion Gap 13.5 mEq/L (5-15); Aspartate Amino Transferase 22 U/L (14-36); Bilirubin,Total 0.3 mg/dl (0.2-1.3); Blood Urea Nitrogen 16 mg/dl (7-17); Calcium 9.1 mg/dl (8.4-10.2); Carbon Dioxide 26 mmol/L (22.0-30.0); Chloride 102 mmol/L (98-107); Estimated Glomerular Filt Rate 129 ml/min (>60); GFR (African American) 156 ML/MIN (>60); Glucose 215 mg/dl (74-100); Potassium 4.5 mmoL/L (3.5-5.1); Sodium 137 mmol/L (136-145); Total Protein,Serum 6.8 g/dl (6.3-8.2)
== END ==
PROVIDERS: PCP Nurse Practitioner Family; Visit Provider Obstetrics & Gynecology
DX: N76.4 Abscess of vulva (principal)
CPT/HCPCS: 36415; 80053; 85025

== ENCOUNTER 2023-02-11 11:10 | Day surgery (SDC) | payer MEDICARE, SELFPAY ==
[2023-02-11] VITALS (9 sets, daily range): BP systolic 111–150; BP diastolic 68–78; PULSE 74–84; RESP 14–18; TEMP 36.1–36.7; O2SAT 93–100; BMI 47.7
[2023-02-11 11:54] LABS: POC Glucose,Bedside 282 (70-110)
--- NOTE | 2023-02-11 14:03 | P.PNANES_ITS ---
[facility] Anesthesia Record Part I Anesthesia Record I Intake, IV Amount: 600 Hydration: Adequate Estimated blood loss (mL): 5 Urine output (mL): 0 Blood Pressure: 118/74 SaO2: 93 Pulse Rate: 80 Airway Patency: Patent Respiratory Rate: 15 Temperature: 98.0 F Patient is:: Awake Stable to PACU at:: 14:05
[2023-02-11 14:14] LABS: POC Glucose,Bedside 262 (70-110)
--- NOTE | 2023-02-11 17:45 | P.OP_ITS ---
Date of procedure: 02/11/23 Pre-op Diagnosis:: Right labial abscess Post-op Diagnosis:: Right labial mass without drainage Procedure performed:: 1. Incision and drainage of the right labia 2. Punch biopsy of the right labia Surgeon:: Kate Fontenot DO Skiver Uppers Or Linings(s):: Demi Jo DO Anesthesia: GETA Estimated blood loss (mL): 50 Operative findings:: Large approximately 5 to 6 cm by 4 cm right labial mass without any fluctuance or induration. The mass was solidified and very hard no loculations appreciated no appreciable drainage Operative note:: Patient was taken back to the operating room where she was placed in dorsal lithotomy position using yellowfin stirrups. The patient was prepped and draped in the usual sterile fashion using chlorhexidine. A 1 cm linear incision was made and the mass was attempted to be expressed without any drainage appreciable. 2 specimen collection swabs were inserted into the incision and the mass was attempted to be broken up up any loculations and further expression was attempted without any return of drainage. At the 6 o'clock position of the mass there was a small ulcerated area this was biopsied with a punch biopsy. Specimen passed off the operative field to be sent to pathology for further evaluation. During the entire procedure no purulent material was noted. My partner was with me for the case and neither of us were able to express any drainage from the suspected abscess. There was a small amount of bleeding from the punch biopsy site this was made hemostatic with a single interrupted suture of 3-0 Vicryl. A second single interrupted suture of 3-0 Vicryl was placed in the midline of the linear incision. Hemostasis was noted. Bleeding was minimal. The patient will be woken from anesthesia and taken to the PACU. She was in stable condition while in the OR. All counts were correct x2, per nursing. Patient will follow-up in my office in 1 to 2 weeks. Condition: stable Disposition: same day Specimens:: 1. Punch biopsy of labial mass 2. Specimens collected for anaerobic and anaerobic cultures Complications:: None
--- NOTE | 2023-02-12 07:39 | EXP.ANES.II ---
[facility] Anesthesia Record Part II Anesthesia Record Part II Discharge Time: 14:35 Destination: Surgical Day Care (OP Surgery) PACU nurse assessment reviewed?: Yes Patient Condition:: Good Anesthesia Complications:: None Swallowing reflex intact?: Yes Airway Patency: Patent Cyanosis?: No Blood Pressure: 122/78 SaO2: 100 Respiratory Rate: 16 Pulse Rate: 77 Temperature: 98.1 F Mental Status: Alert & Oriented and Lethargic Pain level:: 1 Nausea and/or vomitting:: None Intake, IV Amount: 0 Hydration: Adequate
[2023-02-12 07:44] VITALS: BP 122/78; PULSE 77; RESP 16; TEMP 36.7; O2SAT 100
== END 2023-02-11 15:07 | disposition home or self-care (01) ==
PROVIDERS: PCP Nurse Practitioner Family; Visit Provider Obstetrics & Gynecology
PROC: (CPT 56405; principal; 2023-02-11 13:00)
DX: N76.4 Abscess of vulva (principal); E11.9 Type 2 diabetes mellitus without complications
CPT/HCPCS: 56405; 82962; 87070; 87075; 87205; 88304; 96374; J2405

== ENCOUNTER → 2023-02-28 15:22 | Outpatient (CLI) | payer MEDICARE, SELFPAY ==
--- NOTE | 2023-02-28 15:26 | CT_ITS ---
FINAL REPORT TECHNIQUE: Thin section axial images were obtained from skull base to vertex without contrast. Coronal reconstruction images were obtained from the axial data. Exam was performed using dose reduction technique. CLINICAL HISTORY: vertigo COMPARISON: October 08, 2021 FINDINGS: There is no mass effect or midline shift. There is a left-sided ventriculoperitoneal shunt with the tip in the region of the third ventricle, unchanged. There is no hydrocephalus. There is no intracranial hemorrhage. The posterior fossa is without acute abnormality. The basilar cisterns are preserved. The soft tissues are without acute abnormality. No acute osseous abnormality is identified. IMPRESSION: No acute intracranial abnormality. Reviewed, Interpreted and Dictated by Munira Cardona MD Transcribed by Miguel Flynn Authenticated and [facility]
== END ==
LOC: RAD 15:23
PROVIDERS: PCP Nurse Practitioner Family; Visit Provider Nurse Practitioner
DX: R42 Dizziness and giddiness (principal); Z98.2 Presence of cerebrospinal fluid drainage device
CPT/HCPCS: 70450

== ENCOUNTER → 2023-03-22 16:22 | Outpatient (CLI) | payer MEDICARE, SELFPAY ==
[2023-03-22 16:04] LABS: Coronavirus 19, PCR Not Detected (NotDetected); Influenza A, PCR Not Detected (NotDetected); Influenza B, PCR Not Detected (NotDetected)
== END ==
PROVIDERS: PCP Internal Medicine; Visit Provider Internal Medicine
DX: J06.9 Acute upper respiratory infection, unspecified (principal)
CPT/HCPCS: 87636

== ENCOUNTER → 2023-05-02 10:38 | Outpatient (CLI) | payer MEDICARE, SELFPAY | PROVIDERS: PCP Otolaryngology; Visit Provider Otolaryngology | DX: J32.9 Chronic sinusitis, unspecified (principal) | CPT/HCPCS: 87070 ==

== ENCOUNTER → 2023-05-05 13:11 | Outpatient (CLI) | payer MEDICARE, SELFPAY ==
[2023-05-05 12:23] LABS: Microscopic, Urine URINE MICROSCOPIC (MICROSCOPIC)
[2023-05-05 12:49] LABS: Basophils # 0.1 K/mm3 (0-0.2); Basophils % 0.5 % (0.1-2.0); Eosinophils # 0.2 K/mm3 (0.0-0.4); Eosinophils % 1.5 % (0.1-12.0); Hematocrit 44.8 % (37.0-47.0); Hemoglobin 14.7 g/dL (12.2-16.2); Lymphocytes # 3.2 K/mm3 (0.7-4.5); Lymphocytes % 20.9 % (10-50); Mean Corpuscular HGB Conc 32.8 g/dL (31.8-35.4); Mean Corpuscular Hemoglobin 30.5 pg (27.0-31.2); Mean Corpuscular Volume 92.8 fl (81-99); Mean Platelet Volume 8.1 fl (7.4-10.4); Monocytes # 0.6 K/mm3 (0.1-1.0); Monocytes % 4.3 % (1.7-9.3); Neutrophils % 72.8 % (37.0-80.0); Platelet Count 347 K/mm3 (142-424); Red Blood Count 4.83 M/mm3 (4.20-5.40); Red Cell Distribution Width 14.7 % (11.5-17.5)
[2023-05-05 13:02] LABS: MANUAL DIFFERENTIAL MANUAL DIFFERENTIAL (MANUAL DIFF)
[2023-05-05 13:29] LABS: Alanine Aminotransferase 35 U/L (12-78); Albumin Level 4.1 g/dl (3.5-5.0); Albumin/Globulin Ratio 1.3 (1.1-1.8); Alkaline Phosphatase 125 U/L (38-126); Anion Gap 12.6 mEq/L (5-15); Aspartate Amino Transferase 31 U/L (14-36); Bilirubin,Total 0.3 mg/dl (0.2-1.3); Blood Urea Nitrogen 10 mg/dl (7-17); Calcium 8.9 mg/dl (8.4-10.2); Carbon Dioxide 26 mmol/L (22.0-30.0); Chloride 101 mmol/L (98-107); Chol/HDL Ratio 5.4 (1-3.5); Cholesterol 125 mg/dl (140-200); Estimated Glomerular Filt Rate 105 ml/min (>60); GFR (African American) 127 ML/MIN (>60); Globulin 3.1 g/dL (1.3-3.2); Glucose 129 mg/dl (74-100); HDL Cholesterol 23 mg/dl (40-60); Potassium 4.6 mmoL/L (3.5-5.1); Sodium 135 mmol/L (136-145); Total Protein,Serum 7.2 g/dl (6.3-8.2); Triglycerides 305 mg/dl (30-150); VLDL Cholesterol 61 mg/dL (0-40)
[2023-05-05 13:31] LABS: Eosinophils % 2 % (0-3); Lymphocytes % 30 % (10-50); Monocytes % 6 % (2-9); Neutrophils % 61 % (42-76); Platelet Estimate Normal; RBC Morphology Normal; Total Cells Counted 100
[2023-05-05 13:40] LABS: Direct LDL Cholesterol 61.42 mg/dL (100-129)
[2023-05-05 13:42] LABS: Appearance,Urine CLEAR (Clear); Bilirubin,Urine Negative (Negative); Blood, Urine TRACE-I (Negative); Color,Urine YELLOW (Yellow); Glucose,Urine (UA) Negative (Negative); Ketones,Urine Negative (Negative); Leukocyte Esterase,Urine 3+ (Negative); Nitrate,Urine POSITIVE (Negative); Protein,Urine Negative (Negative); Urobilinogen,Urine 0.2 EU/dl (0.2)
[2023-05-05 13:47] LABS: Free T4 (Free Thyroxine) 1.58 ng/dl (0.78-2.19)
[2023-05-05 13:48] LABS: 25-OH Vitamin D, Total 50.8 ng/mL (30-100)
[2023-05-05 14:02] LABS: Thyroid Stimulating Hormone 1.17 uIU/mL (0.465-4.68)
[2023-05-05 14:07] LABS: Creatinine,Urine Random 24 mg/dL (Not Estab.); Microalbumin < 6.000 mg/L (0-16.7)
[2023-05-05 14:08] LABS: WBC,Urine TNTC #/hpf (0-3)
[2023-05-05 14:09] LABS: Bacteria,Urine 4+ /lpf
[2023-05-05 15:00] LABS: Hemoglobin A1C 8.6 % (4.0-6.0)
== END ==
PROVIDERS: PCP Internal Medicine; Visit Provider Internal Medicine
DX: R82.998 Other abnormal findings in urine (principal); E11.9 Type 2 diabetes mellitus without complications; Z13.21 Encounter for screening for nutritional disorder; Z68.41 Body mass index [BMI] 40.0-44.9, adult; E78.5 Hyperlipidemia, unspecified; Z13.220 Encounter for screening for lipoid disorders; N76.4 Abscess of vulva; Z00.00 Encounter for general adult medical examination without abnormal findings; M32.9 Systemic lupus erythematosus, unspecified; Z13.29 Encounter for screening for other suspected endocrine disorder; E66.9 Obesity, unspecified; Z79.4 Long term (current) use of insulin; Z79.899 Other long term (current) drug therapy; N39.0 Urinary tract infection, site not specified; B96.29 Other Escherichia coli [E. coli] as the cause of diseases classified elsewhere
CPT/HCPCS: 80053; 80061; 81001; 82043; 82306; 82570; 83036; 84439; 84443; 85007; 85025; 87086